=== PATIENT | male | born 1965 | race Caucasian/White ===

== ENCOUNTER 2016-11-08 11:15 | Emergency (ER) | payer OTHER ==
[2016-01-22 10:50] VITALS: BMI 22.6
[~2016-11-08 11:15] MED LIST: CELEXA20 MG PO; CYMBALTA60 MG PO; LITHIUM CARBON300 M3 PO; OLEPTRO ER150 MG PO; OXYCODONE HCL5 MG PO; SEROQUEL300 MG PO
[2016-11-08 12:08] LABS: BASOPHILS 0.2 % (0.0-2.0); EOSINOPHILS 3.7 % (0-7); HEMOGLOBIN 14.8 g/dL (13.5-17.5); IMMATURE GRANULOCYTES 0.2 % (0-5); LYMPHOCYTES 45.7 % (15-50); MCH 32.7 pg (26.0-34.0); MCHC 32.2 g/dL (31.0-37.0); MCV 101.5 fL (80.0-100.0); MEAN PLATELET VOLUME 12.3 fL (7.4-10.4); NEUTROPHILS 37.2 % (40-80); RBC 4.53 10x6/uL (4.20-6.10); RDW 13.9 % (11.5-14.5); WBC 4.9 10x3/uL (4.8-10.8)
[2016-11-08 12:10] LABS: ALBUMIN 4.4 g/dL (3.4-5.0); ALKALINE PHOSPHATASE 99 U/L (46-116); ALT (SGPT) 40 U/L (10-68); BILIRUBIN - TOTAL 0.25 mg/dL (0.2-1.3); CALC OSMOLALITY 278 mosm/kg (275-300); CALCIUM 9.3 mg/dL (8.5-10.1); CARBON DIOXIDE 32.4 mmol/L (21.0-32.0); CHLORIDE - SERUM 104 mmol/L (98-107); GLUCOSE 74 mg/dL (74-106); POTASSIUM - SERUM 3.8 mmol/L (3.5-5.1); PROTEIN - SERUM 7.8 g/dL (6.4-8.2); SODIUM 141 mmol/L (136-145); UREA NITROGEN 9 mg/dL (7-18); eGFR NON AFRICAN AMERICAN 85 mL/min (90-120)
[2016-11-08 12:11] LABS: PLATELET COUNT 124 10x3/uL (130-400)
[2016-11-08 12:26] LABS: CREATINE KINASE 110 UL (21-232)
[2016-11-08 12:28] LABS: TROPONIN-I < 0.017 ng/mL (0.000-0.060)
== END 2016-11-08 16:33 | disposition home or self-care (01) ==
LOC: D.ER 11:15
PROVIDERS: Emergency Medicine
DX: M54.9 Dorsalgia, unspecified (principal); F31.9 Bipolar disorder, unspecified; F17.200 Nicotine dependence, unspecified, uncomplicated

== ENCOUNTER 2016-11-09 12:30 | Emergency (ER) | payer OTHER ==
[2016-01-22 10:50] VITALS: BMI 22.6
[2016-11-09 13:07] LABS: APPEARANCE CLEAR (CLEAR); BILIRUBIN NEGATIVE (NEGATIVE); COLOR YELLOW (YELLOW); GLUCOSE NEGATIVE (NEGATIVE); KETONE NEGATIVE (NEGATIVE); LEUKOCYTE ESTERASE NEGATIVE (NEGATIVE); NITRITE NEGATIVE (NEGATIVE); PROTEIN NEGATIVE (NEGATIVE); UROBILINOGEN NORMAL (NORMAL)
[2016-11-09 13:11] LABS: UDS - AMPHET NEGATIVE QUAL (NEGATIVE); UDS - BARB NEGATIVE QUAL (NEGATIVE); UDS - BENZO NEGATIVE QUAL (NEGATIVE); UDS - COCAINE NEGATIVE QUAL (NEGATIVE); UDS - METH NEGATIVE QUAL (NEGATIVE); UDS - OPIATE POSITIVE QUAL (NEGATIVE); UDS - PCP NEGATIVE QUAL (NEGATIVE); UDS - THC NEGATIVE QUAL (NEGATIVE)
[2016-11-09 13:28] LABS: BASOPHILS 0.1 % (0.0-2.0); EOSINOPHILS 0.1 % (0-7); HEMATOCRIT 39.8 % (42.0-54.0); IMMATURE GRANULOCYTES 0.2 % (0-5); MCH 32.7 pg (26.0-34.0); MCHC 32.7 g/dL (31.0-37.0); MCV 100.3 fL (80.0-100.0); MEAN PLATELET VOLUME 12.1 fL (7.4-10.4); MONOCYTES 9.9 % (2-11); NEUTROPHILS 75.7 % (40-80); PLATELET COUNT 124 10x3/uL (130-400); RBC 3.97 10x6/uL (4.20-6.10); RDW 13.7 % (11.5-14.5); WBC 14.5 10x3/uL (4.8-10.8)
[2016-11-09 14:08] LABS: ALKALINE PHOSPHATASE 82 U/L (46-116); ALT (SGPT) 31 U/L (10-68); BILIRUBIN - TOTAL 0.17 mg/dL (0.2-1.3); CALCIUM 9.1 mg/dL (8.5-10.1); CARBON DIOXIDE 24.7 mmol/L (21.0-32.0); CHLORIDE - SERUM 105 mmol/L (98-107); CREATININE - SERUM 1.1 mg/dL (0.6-1.3); PROTEIN - SERUM 6.9 g/dL (6.4-8.2); SODIUM 140 mmol/L (136-145); UREA NITROGEN 11 mg/dL (7-18); eGFR NON AFRICAN AMERICAN 76 mL/min (90-120)
[2016-11-09 14:13] LABS: CALC OSMOLALITY 280 mosm/kg (275-300); GLUCOSE 153 mg/dL (74-106)
== END 2016-11-09 19:11 | disposition home or self-care (01) ==
LOC: D.ER 12:30
PROVIDERS: Emergency Medicine
DX: F23 Brief psychotic disorder (principal); Z91.14 Patient's other noncompliance with medication regimen; F31.9 Bipolar disorder, unspecified; F17.200 Nicotine dependence, unspecified, uncomplicated

== ENCOUNTER 2016-11-22 16:18 | Emergency (ER) | payer OTHER ==
[2016-01-22 10:50] VITALS: BMI 22.6
[2016-11-22 17:00] LABS: APPEARANCE CLEAR (CLEAR); COLOR YELLOW (YELLOW)
[2016-11-22 17:01] LABS: BILIRUBIN NEGATIVE (NEGATIVE); GLUCOSE NEGATIVE (NEGATIVE); KETONE NEGATIVE (NEGATIVE); LEUKOCYTE ESTERASE NEGATIVE (NEGATIVE); NITRITE NEGATIVE (NEGATIVE); PROTEIN NEGATIVE (NEGATIVE); SPECIFIC GRAVITY 1.005 (1.005-1.020); UROBILINOGEN NORMAL (NORMAL)
[2016-11-22 17:08] LABS: BASOPHILS 0.5 % (0.0-2.0); HEMATOCRIT 47.2 % (42.0-54.0); HEMOGLOBIN 15.5 g/dL (13.5-17.5); IMMATURE GRANULOCYTES 0.5 % (0-5); LYMPHOCYTES 26.1 % (15-50); MCH 32.3 pg (26.0-34.0); MCHC 32.8 g/dL (31.0-37.0); MCV 98.3 fL (80.0-100.0); MEAN PLATELET VOLUME 12.2 fL (7.4-10.4); MONOCYTES 8.3 % (2-11); NEUTROPHILS 59.6 % (40-80); RDW 13.8 % (11.5-14.5); WBC 6.6 10x3/uL (4.8-10.8)
[2016-11-22 17:09] LABS: PLATELET COUNT 65 10x3/uL (130-400)
[2016-11-22 17:36] LABS: PLATELET ESTIMATE DECREASED
[2016-11-22 18:24] LABS: ALBUMIN 4.4 g/dL (3.4-5.0); ALKALINE PHOSPHATASE 101 U/L (46-116); ALT (SGPT) 65 U/L (10-68); AMYLASE - SERUM 157 U/L (25-115); CALC OSMOLALITY 288 mosm/kg (275-300); CALCIUM 9.4 mg/dL (8.5-10.1); CARBON DIOXIDE 29.1 mmol/L (21.0-32.0); CHLORIDE - SERUM 106 mmol/L (98-107); LIPASE 516 U/L (73-393); POTASSIUM - SERUM 3.7 mmol/L (3.5-5.1); PROTEIN - SERUM 7.8 g/dL (6.4-8.2); SODIUM 146 mmol/L (136-145); UREA NITROGEN 8 mg/dL (7-18); eGFR NON AFRICAN AMERICAN 84 mL/min (90-120)
[2016-11-22 18:25] LABS: GLUCOSE 92 mg/dL (74-106)
== END 2016-11-22 19:35 | disposition home or self-care (01) ==
LOC: D.ER 16:18
PROVIDERS: Family Medicine
DX: R11.10 Vomiting, unspecified (principal); F31.9 Bipolar disorder, unspecified; F10.10 Alcohol abuse, uncomplicated; F17.200 Nicotine dependence, unspecified, uncomplicated

== ENCOUNTER 2016-12-04 11:26 | Emergency (ER) | payer OTHER ==
[2016-01-22 10:50] VITALS: BMI 22.6
== END 2016-12-04 13:57 | disposition home or self-care (01) ==
LOC: D.ER 11:26
DX: M54.5 Low back pain (principal); F31.9 Bipolar disorder, unspecified; F17.200 Nicotine dependence, unspecified, uncomplicated

== ENCOUNTER 2016-12-12 14:41 | Emergency (ER) | payer OTHER ==
[2016-01-22 10:50] VITALS: BMI 22.6
== END 2016-12-12 15:17 | disposition home or self-care (01) ==
LOC: D.ER 14:41
DX: M54.5 Low back pain (principal); Z76.0 Encounter for issue of repeat prescription; F31.9 Bipolar disorder, unspecified

== ENCOUNTER 2016-12-22 16:02 | Emergency (ER) | payer OTHER ==
[2016-01-22 10:50] VITALS: BMI 22.6
== END 2016-12-22 18:25 | disposition home or self-care (01) ==
LOC: D.ER 16:02
DX: M54.5 Low back pain (principal)

== ENCOUNTER 2016-12-29 16:31 | Emergency (ER) | payer OTHER ==
[2016-01-22 10:50] VITALS: BMI 22.6
== END 2016-12-29 20:30 | disposition home or self-care (01) ==
LOC: D.ER 16:31
DX: M54.5 Low back pain (principal); F17.200 Nicotine dependence, unspecified, uncomplicated; F31.9 Bipolar disorder, unspecified

== ENCOUNTER 2017-01-01 17:20 | Emergency (ER) | payer OTHER ==
[2016-01-22 10:50] VITALS: BMI 22.6
== END 2017-01-01 20:48 | disposition home or self-care (01) ==
LOC: D.ER 17:20
DX: M54.5 Low back pain (principal); M62.830 Muscle spasm of back; F31.9 Bipolar disorder, unspecified

== ENCOUNTER 2017-01-06 16:25 | Emergency (ER) | payer OTHER ==
[2016-01-22 10:50] VITALS: BMI 22.6
== END 2017-01-06 20:02 | disposition home or self-care (01) ==
LOC: D.ER 16:25
DX: M54.5 Low back pain (principal); F17.200 Nicotine dependence, unspecified, uncomplicated; F31.9 Bipolar disorder, unspecified

== ENCOUNTER 2017-01-20 18:16 | Emergency (ER) | payer OTHER ==
[2016-01-22 10:50] VITALS: BMI 22.6
[2017-01-20 20:13] LABS: HEMOGLOBIN 15.3 g/dL (13.5-17.5); MCH 32.6 pg (26.0-34.0); MCHC 33.3 g/dL (31.0-37.0); MCV 97.9 fL (80.0-100.0); MEAN PLATELET VOLUME 11.5 fL (7.4-10.4); WBC 5.2 10x3/uL (4.8-10.8)
[2017-01-20 20:14] LABS: PLATELET COUNT 167 10x3/uL (130-400)
[2017-01-20 20:23] LABS: ALBUMIN 4.4 g/dL (3.4-5.0); ALKALINE PHOSPHATASE 99 U/L (46-116); ALT (SGPT) 51 U/L (10-68); BILIRUBIN - TOTAL 0.19 mg/dL (0.2-1.3); CALC OSMOLALITY 287 mosm/kg (275-300); CALCIUM 9.1 mg/dL (8.5-10.1); CARBON DIOXIDE 23.4 mmol/L (21.0-32.0); CHLORIDE - SERUM 107 mmol/L (98-107); GLUCOSE 96 mg/dL (74-106); POTASSIUM - SERUM 4.2 mmol/L (3.5-5.1); PROTEIN - SERUM 8.4 g/dL (6.4-8.2); SODIUM 145 mmol/L (136-145); UREA NITROGEN 10 mg/dL (7-18); eGFR NON AFRICAN AMERICAN 84 mL/min (90-120)
[2017-01-20 20:40] LABS: EOSINOPHILS 2 % (0-7); LYMPHOCYTES 61 % (15-50); MONOCYTES 9 % (2-11); NEUTROPHILS 28 % (40-80); PLATELET ESTIMATE NORMAL
[2017-01-20 21:26] LABS: AMYLASE - SERUM 127 U/L (25-115); LIPASE 545 U/L (73-393)
== END 2017-01-21 00:40 | disposition home or self-care (01) ==
LOC: D.ER 18:16
PROVIDERS: Emergency Medicine; Physician Assistant
DX: R10.9 Unspecified abdominal pain (principal); R11.2 Nausea with vomiting, unspecified; M54.9 Dorsalgia, unspecified; K29.00 Acute gastritis without bleeding

== ENCOUNTER 2017-02-15 15:39 | Emergency (ER) | payer OTHER ==
[2016-01-22 10:50] VITALS: BMI 22.6
== END 2017-02-15 18:52 | disposition home or self-care (01) ==
LOC: D.ER 15:39
DX: S16.1XXA Strain of muscle, fascia and tendon at neck level, initial encounter (principal); X58.XXXA Exposure to other specified factors, initial encounter; Y93.89 Activity, other specified; Y92.89 Other specified places as the place of occurrence of the external cause; M62.838 Other muscle spasm; F17.200 Nicotine dependence, unspecified, uncomplicated

== ENCOUNTER 2017-02-19 17:55 | Emergency (ER) | payer OTHER ==
[2016-01-22 10:50] VITALS: BMI 22.6
[2017-02-19 18:23] LABS: BASOPHILS 0.1 % (0-2); EOSINOPHILS 3.1 % (0-7); HEMATOCRIT 47.6 % (42.0-54.0); HEMOGLOBIN 15.5 g/dL (13.5-17.5); IMMATURE GRANULOCYTES 0.1 % (0-5); MCH 32.4 pg (26.0-34.0); MCHC 32.6 g/dL (31.0-37.0); MCV 99.6 fL (80.0-100.0); MEAN PLATELET VOLUME 10.9 fL (7.4-10.4); MONOCYTES 17.2 % (2-11); NEUTROPHILS 48.5 % (40-80); PLATELET COUNT 192 10x3/uL (130-400); RBC 4.78 10x6/uL (4.20-6.10); WBC 6.9 10x3/uL (4.8-10.8)
[2017-02-19 18:25] LABS: APPEARANCE CLEAR (CLEAR); BILIRUBIN NEGATIVE (NEGATIVE); COLOR STRAW (YELLOW); GLUCOSE NEGATIVE (NEGATIVE); KETONE NEGATIVE (NEGATIVE); LEUKOCYTE ESTERASE NEGATIVE (NEGATIVE); NITRITE NEGATIVE (NEGATIVE); PROTEIN NEGATIVE (NEGATIVE); UROBILINOGEN NORMAL (NORMAL)
[2017-02-19 18:30] LABS: UDS - AMPHET NEGATIVE QUAL (NEGATIVE); UDS - BARB NEGATIVE QUAL (NEGATIVE); UDS - BENZO NEGATIVE QUAL (NEGATIVE); UDS - COCAINE NEGATIVE QUAL (NEGATIVE); UDS - METH NEGATIVE QUAL (NEGATIVE); UDS - OPIATE NEGATIVE QUAL (NEGATIVE); UDS - PCP NEGATIVE QUAL (NEGATIVE); UDS - THC NEGATIVE QUAL (NEGATIVE)
[2017-02-19 18:37] LABS: ALBUMIN 4.3 g/dL (3.4-5.0); ALKALINE PHOSPHATASE 109 U/L (46-116); ALT (SGPT) 33 U/L (10-68); CALC OSMOLALITY 275 mosm/kg (275-300); CALCIUM 9.5 mg/dL (8.5-10.1); CARBON DIOXIDE 27.5 mmol/L (21.0-32.0); CHLORIDE - SERUM 103 mmol/L (98-107); GLUCOSE 81 mg/dL (74-106); POTASSIUM - SERUM 4.2 mmol/L (3.5-5.1); PROTEIN - SERUM 8.3 g/dL (6.4-8.2); SODIUM 140 mmol/L (136-145); UREA NITROGEN 7 mg/dL (7-18); eGFR NON AFRICAN AMERICAN 84 mL/min (90-120)
== END 2017-02-20 00:04 | disposition home or self-care (01) ==
LOC: D.ER 17:55
PROVIDERS: Emergency Medicine
DX: F10.129 Alcohol abuse with intoxication, unspecified (principal); R45.851 Suicidal ideations; F17.200 Nicotine dependence, unspecified, uncomplicated

== ENCOUNTER 2017-07-23 09:54 | Emergency (ER) | payer OTHER ==
[2016-01-22 10:50] VITALS: BMI 22.6
[2017-07-23 10:17] LABS: BASOPHILS 0.1 % (0-2); EOSINOPHILS 1.4 % (0-7); HEMATOCRIT 43.8 % (42.0-54.0); HEMOGLOBIN 14.7 g/dL (13.5-17.5); IMMATURE GRANULOCYTES 0.3 % (0-5); LYMPHOCYTES 28.3 % (15-50); MCH 33.7 pg (26.0-34.0); MCHC 33.6 g/dL (31.0-37.0); MCV 100.5 fL (80.0-100.0); MEAN PLATELET VOLUME 11.5 fL (7.4-10.4); NEUTROPHILS 56.9 % (40-80); PLATELET COUNT 187 10x3/uL (130-400); RBC 4.36 10x6/uL (4.20-6.10); RDW 12.9 % (11.5-14.5); WBC 7.7 10x3/uL (4.8-10.8)
[2017-07-23 10:22] LABS: APPEARANCE CLEAR (CLEAR); BILIRUBIN NEGATIVE (NEGATIVE); COLOR STRAW (YELLOW); GLUCOSE NEGATIVE (NEGATIVE); KETONE NEGATIVE (NEGATIVE); NITRITE NEGATIVE (NEGATIVE); PH 5.5 (5.0-6.0); PROTEIN NEGATIVE (NEGATIVE); SPECIFIC GRAVITY 1.005 (1.005-1.020); UROBILINOGEN NORMAL (NORMAL)
[2017-07-23 10:31] LABS: ALBUMIN 4.1 g/dL (3.4-5.0); ALKALINE PHOSPHATASE 103 U/L (46-116); ALT (SGPT) 45 U/L (10-68); AMYLASE - SERUM 63 U/L (25-115); BILIRUBIN - TOTAL 0.34 mg/dL (0.2-1.3); CALC OSMOLALITY 278 mosm/kg (275-300); CALCIUM 9.5 mg/dL (8.5-10.1); CARBON DIOXIDE 23.6 mmol/L (21.0-32.0); CHLORIDE - SERUM 104 mmol/L (98-107); CREATININE - SERUM 0.8 mg/dL (0.6-1.3); GLUCOSE 117 mg/dL (74-106); LIPASE 119 U/L (73-393); SODIUM 140 mmol/L (136-145); UREA NITROGEN 10 mg/dL (7-18); eGFR NON AFRICAN AMERICAN > 90 mL/min (90-120)
== END 2017-07-23 11:38 | disposition home or self-care (01) ==
LOC: D.ER 09:54
PROVIDERS: Emergency Medicine
DX: K21.9 Gastro-esophageal reflux disease without esophagitis (principal); F17.200 Nicotine dependence, unspecified, uncomplicated

== ENCOUNTER 2017-08-21 09:18 | Emergency (ER) | payer OTHER ==
[2016-01-22 10:50] VITALS: BMI 22.6
[2017-08-21 09:48] LABS: BASOPHILS 0 % (0-2); HEMATOCRIT 41.8 % (42.0-54.0); HEMOGLOBIN 14.3 g/dL (13.5-17.5); IMMATURE GRANULOCYTES 0.4 % (0-5); LYMPHOCYTES 36.8 % (15-50); MCH 33.6 pg (26.0-34.0); MCHC 34.2 g/dL (31.0-37.0); MCV 98.1 fL (80.0-100.0); MEAN PLATELET VOLUME 11.4 fL (7.4-10.4); MONOCYTES 16.9 % (2-11); NEUTROPHILS 43.9 % (40-80); PLATELET COUNT 164 10x3/uL (130-400); RBC 4.26 10x6/uL (4.20-6.10); RDW 12.7 % (11.5-14.5); WBC 7.7 10x3/uL (4.8-10.8)
[2017-08-21 09:57] LABS: APTT 24.5 SECONDS (22.8-39.4); INR 0.96 (0.85-1.17); PROTIME 12.7 SECONDS (11.6-15.0)
[2017-08-21 10:03] LABS: ALBUMIN 4.2 g/dL (3.4-5.0); ALKALINE PHOSPHATASE 100 U/L (46-116); ALT (SGPT) 48 U/L (10-68); BILIRUBIN - TOTAL 0.55 mg/dL (0.2-1.3); CALC OSMOLALITY 277 mosm/kg (275-300); CALCIUM 8.8 mg/dL (8.5-10.1); CARBON DIOXIDE 23.7 mmol/L (21.0-32.0); CHLORIDE - SERUM 103 mmol/L (98-107); CREATININE - SERUM 0.9 mg/dL (0.6-1.3); GLUCOSE 98 mg/dL (74-106); POTASSIUM - SERUM 3.6 mmol/L (3.5-5.1); PROTEIN - SERUM 8.1 g/dL (6.4-8.2); SODIUM 139 mmol/L (136-145); UREA NITROGEN 12 mg/dL (7-18); eGFR NON AFRICAN AMERICAN > 90 mL/min (90-120)
[2017-08-21 10:24] LABS: APPEARANCE CLEAR (CLEAR); BILIRUBIN NEGATIVE (NEGATIVE); COLOR DK YELLOW (YELLOW); GLUCOSE NEGATIVE (NEGATIVE); KETONE NEGATIVE (NEGATIVE); NITRITE NEGATIVE (NEGATIVE); PROTEIN NEGATIVE (NEGATIVE); UROBILINOGEN NORMAL (NORMAL)
== END 2017-08-21 11:22 | disposition home or self-care (01) ==
LOC: D.ER 09:18
PROVIDERS: Emergency Medicine
DX: K62.5 Hemorrhage of anus and rectum (principal); F17.200 Nicotine dependence, unspecified, uncomplicated

== ENCOUNTER 2017-09-10 11:49 | Emergency (ER) | payer OTHER ==
[2016-01-22 10:50] VITALS: BMI 22.6
== END 2017-09-10 13:35 | disposition home or self-care (01) ==
LOC: D.ER 11:49
DX: S40.011A Contusion of right shoulder, initial encounter (principal); S20.211A Contusion of right front wall of thorax, initial encounter; W01.0XXA Fall on same level from slipping, tripping and stumbling without subsequent striking against object, initial encounter; Y93.89 Activity, other specified; Y92.89 Other specified places as the place of occurrence of the external cause; F17.200 Nicotine dependence, unspecified, uncomplicated; K21.9 Gastro-esophageal reflux disease without esophagitis

== ENCOUNTER 2017-09-21 14:26 | Emergency (ER) | payer OTHER ==
[2016-01-22 10:50] VITALS: BMI 22.6
== END 2017-09-21 17:30 | disposition home or self-care (01) ==
LOC: D.ER 14:26
DX: M54.16 Radiculopathy, lumbar region (principal); K21.9 Gastro-esophageal reflux disease without esophagitis; F17.200 Nicotine dependence, unspecified, uncomplicated

== ENCOUNTER 2017-09-22 09:27 | Emergency (ER) | payer OTHER ==
[2016-01-22 10:50] VITALS: BMI 22.6
== END 2017-09-22 14:20 | disposition home or self-care (01) ==
LOC: D.ER 09:27
DX: S01.111A Laceration without foreign body of right eyelid and periocular area, initial encounter (principal); W22.8XXA Striking against or struck by other objects, initial encounter; Y93.89 Activity, other specified; Y92.89 Other specified places as the place of occurrence of the external cause; R51 Headache; K21.9 Gastro-esophageal reflux disease without esophagitis

== ENCOUNTER 2017-09-25 19:48 | Emergency (ER) | payer OTHER ==
[2016-01-22 10:50] VITALS: BMI 22.6
[2017-09-25 20:24] LABS: BASOPHILS 0.2 % (0-2); EOSINOPHILS 0.8 % (0-7); HEMATOCRIT 49.1 % (42.0-54.0); HEMOGLOBIN 16.4 g/dL (13.5-17.5); IMMATURE GRANULOCYTES 0.2 % (0-5); LYMPHOCYTES 25.6 % (15-50); MCH 33.8 pg (26.0-34.0); MCHC 33.4 g/dL (31.0-37.0); MCV 101.2 fL (80.0-100.0); MEAN PLATELET VOLUME 11.1 fL (7.4-10.4); MONOCYTES 15.5 % (2-11); NEUTROPHILS 57.7 % (40-80); RBC 4.85 10x6/uL (4.20-6.10); WBC 9.6 10x3/uL (4.8-10.8)
[2017-09-25 20:25] LABS: APPEARANCE CLEAR (CLEAR); BILIRUBIN NEGATIVE (NEGATIVE); COLOR YELLOW (YELLOW); GLUCOSE NEGATIVE (NEGATIVE); KETONE NEGATIVE (NEGATIVE); NITRITE NEGATIVE (NEGATIVE); PLATELET COUNT 207 10x3/uL (130-400); PROTEIN NEGATIVE (NEGATIVE); SPECIFIC GRAVITY 1.005 (1.005-1.020); UROBILINOGEN NORMAL (NORMAL)
[2017-09-25 20:35] LABS: INR 0.94 (0.85-1.17); PROTIME 12.2 SECONDS (11.6-15.0)
[2017-09-25 20:41] LABS: ALBUMIN 4.4 g/dL (3.4-5.0); ALKALINE PHOSPHATASE 118 U/L (46-116); ALT (SGPT) 33 U/L (10-68); AMYLASE - SERUM 74 U/L (25-115); CALC OSMOLALITY 278 mosm/kg (275-300); CALCIUM 10.1 mg/dL (8.5-10.1); CARBON DIOXIDE 25.5 mmol/L (21.0-32.0); CHLORIDE - SERUM 103 mmol/L (98-107); CREATININE - SERUM 0.9 mg/dL (0.6-1.3); GLUCOSE 81 mg/dL (74-106); LIPASE 175 U/L (73-393); POTASSIUM - SERUM 3.9 mmol/L (3.5-5.1); PROTEIN - SERUM 8.4 g/dL (6.4-8.2); SODIUM 141 mmol/L (136-145); UREA NITROGEN 11 mg/dL (7-18); eGFR NON AFRICAN AMERICAN > 90 mL/min (90-120)
== END 2017-09-25 21:31 | disposition home or self-care (01) ==
LOC: D.ER 19:48
PROVIDERS: Family Medicine; Physician Assistant
DX: R10.11 Right upper quadrant pain (principal); Z72.89 Other problems related to lifestyle; Z87.19 Personal history of other diseases of the digestive system; F17.200 Nicotine dependence, unspecified, uncomplicated; K21.9 Gastro-esophageal reflux disease without esophagitis

== ENCOUNTER 2017-09-26 07:19 | Emergency (ER) | payer OTHER ==
[2016-01-22 10:50] VITALS: BMI 22.6
[2017-09-26 07:37] LABS: HEMATOCRIT 44.9 % (42.0-54.0); HEMOGLOBIN 15.2 g/dL (13.5-17.5); MCH 33.8 pg (26.0-34.0); MCHC 33.9 g/dL (31.0-37.0); MCV 99.8 fL (80.0-100.0); MEAN PLATELET VOLUME 10.9 fL (7.4-10.4); PLATELET COUNT 212 10x3/uL (130-400); RDW 13.7 % (11.5-14.5); WBC 8.3 10x3/uL (4.8-10.8)
[2017-09-26 08:08] LABS: LYMPHOCYTES 33 % (15-50); MONOCYTES 13 % (2-11); NEUTROPHILS 54 % (40-80); PLATELET ESTIMATE NORMAL
[2017-09-26 08:57] LABS: ALKALINE PHOSPHATASE 111 U/L (46-116); ALT (SGPT) 32 U/L (10-68); CALC OSMOLALITY 280 mosm/kg (275-300); CALCIUM 9.4 mg/dL (8.5-10.1); CARBON DIOXIDE 25.4 mmol/L (21.0-32.0); CHLORIDE - SERUM 105 mmol/L (98-107); CREATININE - SERUM 0.8 mg/dL (0.6-1.3); GLUCOSE 86 mg/dL (74-106); LIPASE 212 U/L (73-393); POTASSIUM - SERUM 4.1 mmol/L (3.5-5.1); SODIUM 140 mmol/L (136-145); eGFR NON AFRICAN AMERICAN > 90 mL/min (90-120)
[2017-09-26 08:58] LABS: UREA NITROGEN 22 mg/dL (7-18)
== END 2017-09-26 10:06 | disposition home or self-care (01) ==
LOC: D.ER 07:19
PROVIDERS: Emergency Medicine
DX: R10.9 Unspecified abdominal pain (principal); K21.9 Gastro-esophageal reflux disease without esophagitis; K76.9 Liver disease, unspecified; F17.200 Nicotine dependence, unspecified, uncomplicated

== ENCOUNTER 2017-09-29 09:19 | Emergency (ER) | payer OTHER ==
[2016-01-22 10:50] VITALS: BMI 22.6
[2017-09-29 10:13] LABS: BASOPHILS 0.2 % (0-2); EOSINOPHILS 1.7 % (0-7); HEMATOCRIT 47.4 % (42.0-54.0); HEMOGLOBIN 15.8 g/dL (13.5-17.5); IMMATURE GRANULOCYTES 0.2 % (0-5); LYMPHOCYTES 27.6 % (15-50); MCH 33.9 pg (26.0-34.0); MCHC 33.3 g/dL (31.0-37.0); MCV 101.7 fL (80.0-100.0); MEAN PLATELET VOLUME 11.7 fL (7.4-10.4); MONOCYTES 14.7 % (2-11); NEUTROPHILS 55.6 % (40-80); PLATELET COUNT 190 10x3/uL (130-400); RBC 4.66 10x6/uL (4.20-6.10); RDW 13.8 % (11.5-14.5)
[2017-09-29 11:32] LABS: ALBUMIN 4.1 g/dL (3.4-5.0); ALKALINE PHOSPHATASE 113 U/L (46-116); ALT (SGPT) 43 U/L (10-68); BILIRUBIN - TOTAL 0.25 mg/dL (0.2-1.3); CALC OSMOLALITY 282 mosm/kg (275-300); CALCIUM 9.4 mg/dL (8.5-10.1); CARBON DIOXIDE 26.5 mmol/L (21.0-32.0); CHLORIDE - SERUM 105 mmol/L (98-107); CREATININE - SERUM 0.8 mg/dL (0.6-1.3); GLUCOSE 81 mg/dL (74-106); LIPASE 130 U/L (73-393); POTASSIUM - SERUM 4.3 mmol/L (3.5-5.1); PROTEIN - SERUM 7.6 g/dL (6.4-8.2); SODIUM 142 mmol/L (136-145); UREA NITROGEN 16 mg/dL (7-18); eGFR NON AFRICAN AMERICAN > 90 mL/min (90-120)
[2017-09-29 12:37] LABS: APPEARANCE CLEAR (CLEAR); COLOR STRAW (YELLOW); SPECIFIC GRAVITY 1.005 (1.005-1.020)
[2017-09-29 12:38] LABS: BILIRUBIN NEGATIVE (NEGATIVE); GLUCOSE NEGATIVE (NEGATIVE); KETONE NEGATIVE (NEGATIVE); NITRITE NEGATIVE (NEGATIVE); PROTEIN NEGATIVE (NEGATIVE); UROBILINOGEN NORMAL (NORMAL)
== END 2017-09-29 15:07 | disposition home or self-care (01) ==
LOC: D.ER 09:19
PROVIDERS: Emergency Medicine; Physician Assistant
DX: R10.9 Unspecified abdominal pain (principal); K21.9 Gastro-esophageal reflux disease without esophagitis; K74.60 Unspecified cirrhosis of liver

== ENCOUNTER 2017-10-02 10:15 | Emergency (ER) | payer OTHER ==
[2016-01-22 10:50] VITALS: BMI 22.6
== END 2017-10-02 11:04 | disposition home or self-care (01) ==
LOC: D.ER 10:15
DX: R10.9 Unspecified abdominal pain (principal); F10.10 Alcohol abuse, uncomplicated; K21.9 Gastro-esophageal reflux disease without esophagitis; F17.200 Nicotine dependence, unspecified, uncomplicated

== ENCOUNTER 2017-10-06 09:51 | Emergency (ER) | payer OTHER ==
[2016-01-22 10:50] VITALS: BMI 22.6
== END 2017-10-06 10:48 | disposition home or self-care (01) ==
LOC: D.ER 09:51
DX: R10.9 Unspecified abdominal pain (principal); F17.200 Nicotine dependence, unspecified, uncomplicated

== ENCOUNTER 2017-10-07 10:20 | Emergency (ER) | payer OTHER ==
[2016-01-22 10:50] VITALS: BMI 22.6
[2017-10-07 10:47] LABS: BASOPHILS 0.3 % (0-2); EOSINOPHILS 1.7 % (0-7); HEMATOCRIT 43.1 % (42.0-54.0); HEMOGLOBIN 14.5 g/dL (13.5-17.5); IMMATURE GRANULOCYTES 0.1 % (0-5); LYMPHOCYTES 35.6 % (15-50); MCH 33.8 pg (26.0-34.0); MCHC 33.6 g/dL (31.0-37.0); MCV 100.5 fL (80.0-100.0); MEAN PLATELET VOLUME 11.3 fL (7.4-10.4); MONOCYTES 15.5 % (2-11); NEUTROPHILS 46.8 % (40-80); PLATELET COUNT 182 10x3/uL (130-400); RBC 4.29 10x6/uL (4.20-6.10); RDW 13.6 % (11.5-14.5); WBC 6.9 10x3/uL (4.8-10.8)
[2017-10-07 10:53] LABS: APPEARANCE CLEAR (CLEAR); BILIRUBIN NEGATIVE (NEGATIVE); COLOR YELLOW (YELLOW); GLUCOSE NEGATIVE (NEGATIVE); KETONE NEGATIVE (NEGATIVE); NITRITE NEGATIVE (NEGATIVE); PROTEIN NEGATIVE (NEGATIVE); UROBILINOGEN NORMAL (NORMAL)
[2017-10-07 11:00] LABS: ALBUMIN 4.1 g/dL (3.4-5.0); ALKALINE PHOSPHATASE 98 U/L (46-116); ALT (SGPT) 29 U/L (10-68); BILIRUBIN - TOTAL 0.25 mg/dL (0.2-1.3); CALC OSMOLALITY 278 mosm/kg (275-300); CALCIUM 9.2 mg/dL (8.5-10.1); CARBON DIOXIDE 25.4 mmol/L (21.0-32.0); CHLORIDE - SERUM 104 mmol/L (98-107); CREATININE - SERUM 0.9 mg/dL (0.6-1.3); GLUCOSE 110 mg/dL (74-106); PROTEIN - SERUM 7.5 g/dL (6.4-8.2); SODIUM 139 mmol/L (136-145); UREA NITROGEN 13 mg/dL (7-18); eGFR NON AFRICAN AMERICAN > 90 mL/min (90-120)
[2017-10-07 11:08] LABS: UDS - AMPHET NEGATIVE QUAL (NEGATIVE); UDS - BARB NEGATIVE QUAL (NEGATIVE); UDS - BENZO NEGATIVE QUAL (NEGATIVE); UDS - COCAINE NEGATIVE QUAL (NEGATIVE); UDS - OPIATE NEGATIVE QUAL (NEGATIVE); UDS - PCP NEGATIVE QUAL (NEGATIVE); UDS - THC NEGATIVE QUAL (NEGATIVE)
== END 2017-10-07 11:50 | disposition home or self-care (01) ==
LOC: D.ER 10:20
PROVIDERS: Emergency Medicine
DX: F29 Unspecified psychosis not due to a substance or known physiological condition (principal); F17.200 Nicotine dependence, unspecified, uncomplicated

== ENCOUNTER 2017-12-16 11:56 | Emergency (ER) | payer OTHER ==
[2016-01-22 10:50] VITALS: BMI 22.6
== END 2017-12-16 13:58 | disposition home or self-care (01) ==
LOC: D.ER 11:56
DX: R07.89 Other chest pain (principal); J20.9 Acute bronchitis, unspecified; F17.200 Nicotine dependence, unspecified, uncomplicated

== ENCOUNTER 2018-01-16 12:33 | Emergency (ER) | payer OTHER ==
[2016-01-22 10:50] VITALS: BMI 22.6
== END 2018-01-16 13:17 | disposition home or self-care (01) ==
LOC: D.ER 12:33
DX: J01.90 Acute sinusitis, unspecified (principal); F17.200 Nicotine dependence, unspecified, uncomplicated

== ENCOUNTER 2018-01-22 22:42 | Emergency (ER) | payer OTHER ==
[2016-01-22 10:50] VITALS: BMI 22.6
[2018-01-22 23:15] LABS: BASOPHILS 0.4 % (0-2); EOSINOPHILS 3.3 % (0-7); HEMATOCRIT 39.7 % (42.0-54.0); HEMOGLOBIN 13.2 g/dL (13.5-17.5); IMMATURE GRANULOCYTES 0.1 % (0-5); LYMPHOCYTES 44.3 % (15-50); MCH 33.2 pg (26.0-34.0); MCHC 33.2 g/dL (31.0-37.0); MEAN PLATELET VOLUME 10.5 fL (7.4-10.4); MONOCYTES 13.9 % (2-11); PLATELET COUNT 202 10x3/uL (130-400); RBC 3.97 10x6/uL (4.20-6.10); RDW 14.5 % (11.5-14.5); WBC 6.9 10x3/uL (4.8-10.8)
[2018-01-22 23:21] LABS: APPEARANCE CLEAR (CLEAR); BILIRUBIN NEGATIVE (NEGATIVE); COLOR YELLOW (YELLOW); GLUCOSE NEGATIVE (NEGATIVE); KETONE NEGATIVE (NEGATIVE); NITRITE NEGATIVE (NEGATIVE); PROTEIN NEGATIVE (NEGATIVE); UROBILINOGEN NORMAL (NORMAL)
[2018-01-22 23:28] LABS: ALBUMIN 3.9 g/dL (3.4-5.0); ALKALINE PHOSPHATASE 100 U/L (46-116); ALT (SGPT) 46 U/L (10-68); CALC OSMOLALITY 282 mosm/kg (275-300); CALCIUM 8.8 mg/dL (8.5-10.1); CARBON DIOXIDE 24.3 mmol/L (21.0-32.0); CHLORIDE - SERUM 109 mmol/L (98-107); CREATININE - SERUM 0.9 mg/dL (0.6-1.3); GLUCOSE 89 mg/dL (74-106); POTASSIUM - SERUM 3.6 mmol/L (3.5-5.1); PROTEIN - SERUM 7.7 g/dL (6.4-8.2); SODIUM 143 mmol/L (136-145); UREA NITROGEN 10 mg/dL (7-18); eGFR NON AFRICAN AMERICAN > 90 mL/min (90-120)
[2018-01-22 23:39] LABS: UDS - AMPHET NEGATIVE QUAL (NEGATIVE); UDS - BARB NEGATIVE QUAL (NEGATIVE); UDS - BENZO NEGATIVE QUAL (NEGATIVE); UDS - COCAINE NEGATIVE QUAL (NEGATIVE); UDS - OPIATE NEGATIVE QUAL (NEGATIVE); UDS - PCP NEGATIVE QUAL (NEGATIVE); UDS - THC NEGATIVE QUAL (NEGATIVE)
== END 2018-01-23 00:50 | disposition home or self-care (01) ==
LOC: D.ER 22:42
PROVIDERS: Family Medicine
DX: R51 Headache (principal); F10.10 Alcohol abuse, uncomplicated; F10.129 Alcohol abuse with intoxication, unspecified; F17.200 Nicotine dependence, unspecified, uncomplicated

== ENCOUNTER 2018-02-20 19:32 | Emergency (ER) | payer OTHER ==
[2016-01-22 10:50] VITALS: BMI 22.6
[2018-02-20 20:18] LABS: BASOPHILS 0.4 % (0-2); EOSINOPHILS 2.7 % (0-7); HEMATOCRIT 40.8 % (42.0-54.0); HEMOGLOBIN 13.7 g/dL (13.5-17.5); IMMATURE GRANULOCYTES 0.2 % (0-5); LYMPHOCYTES 39.8 % (15-50); MCH 33.2 pg (26.0-34.0); MCHC 33.6 g/dL (31.0-37.0); MCV 98.8 fL (80.0-100.0); MEAN PLATELET VOLUME 10.6 fL (7.4-10.4); MONOCYTES 14.7 % (2-11); NEUTROPHILS 42.2 % (40-80); PLATELET COUNT 176 10x3/uL (130-400); RBC 4.13 10x6/uL (4.20-6.10); RDW 13.5 % (11.5-14.5); WBC 5.2 10x3/uL (4.8-10.8)
[2018-02-20 20:38] LABS: ALBUMIN 3.7 g/dL (3.4-5.0); ALKALINE PHOSPHATASE 98 U/L (46-116); ALT (SGPT) 31 U/L (10-68); BILIRUBIN - TOTAL 0.14 mg/dL (0.2-1.3); CALC OSMOLALITY 278 mosm/kg (275-300); CALCIUM 8.5 mg/dL (8.5-10.1); CARBON DIOXIDE 22.5 mmol/L (21.0-32.0); CHLORIDE - SERUM 106 mmol/L (98-107); CREATININE - SERUM 0.9 mg/dL (0.6-1.3); GLUCOSE 89 mg/dL (74-106); POTASSIUM - SERUM 3.7 mmol/L (3.5-5.1); PROTEIN - SERUM 7.3 g/dL (6.4-8.2); SODIUM 141 mmol/L (136-145); UREA NITROGEN 10 mg/dL (7-18); eGFR NON AFRICAN AMERICAN > 90 mL/min (90-120)
[2018-02-20 20:47] LABS: APPEARANCE CLEAR (CLEAR); BILIRUBIN NEGATIVE (NEGATIVE); COLOR YELLOW (YELLOW); GLUCOSE NEGATIVE (NEGATIVE); KETONE NEGATIVE (NEGATIVE); NITRITE NEGATIVE (NEGATIVE); PROTEIN NEGATIVE (NEGATIVE); SPECIFIC GRAVITY 1.015 (1.005-1.020); UROBILINOGEN NORMAL (NORMAL)
[2018-02-20 20:58] LABS: UDS - AMPHET NEGATIVE QUAL (NEGATIVE); UDS - BARB NEGATIVE QUAL (NEGATIVE); UDS - BENZO POSITIVE QUAL (NEGATIVE); UDS - COCAINE NEGATIVE QUAL (NEGATIVE); UDS - OPIATE NEGATIVE QUAL (NEGATIVE); UDS - PCP NEGATIVE QUAL (NEGATIVE); UDS - THC POSITIVE QUAL (NEGATIVE)
== END 2018-02-21 04:33 | disposition short-term general hospital (02) ==
LOC: D.ER 19:32
PROVIDERS: Family Medicine
DX: R45.851 Suicidal ideations (principal); F10.10 Alcohol abuse, uncomplicated; F17.200 Nicotine dependence, unspecified, uncomplicated

== ENCOUNTER 2018-03-06 15:17 | Emergency (ER) | payer OTHER ==
[2016-01-22 10:50] VITALS: BMI 22.6
== END 2018-03-06 17:25 | disposition home or self-care (01) ==
LOC: D.ER 15:17
DX: S39.012A Strain of muscle, fascia and tendon of lower back, initial encounter (principal); X58.XXXA Exposure to other specified factors, initial encounter; Y93.89 Activity, other specified; Y92.019 Unspecified place in single-family (private) house as the place of occurrence of the external cause; M62.838 Other muscle spasm; F17.200 Nicotine dependence, unspecified, uncomplicated

== ENCOUNTER 2018-03-08 06:54 | Emergency (ER) | payer OTHER ==
[2016-01-22 10:50] VITALS: BMI 22.6
== END 2018-03-08 07:45 | disposition home or self-care (01) ==
LOC: D.ER 06:54
DX: M62.830 Muscle spasm of back (principal); M54.5 Low back pain; S39.012A Strain of muscle, fascia and tendon of lower back, initial encounter; X58.XXXA Exposure to other specified factors, initial encounter; Y93.01 Activity, walking, marching and hiking; Y92.410 Unspecified street and highway as the place of occurrence of the external cause

== ENCOUNTER 2018-05-05 10:00 | Emergency (ER) | payer OTHER ==
[~2018-05-05] VITALS: Ht 167.6 cm; Wt 62.7 kg
[2018-05-05 10:03] VITALS: Ht 167.6 cm; Wt 62.7 kg
[2018-05-05] MEDS ORDERED: VOLTAREN75 MG PO (15:59)
[2018-05-05] MEDS ORDERED: ROBAXIN-750750 MG PO (15:59)
[2018-05-05 16:44] VITALS: BP 143/79
== END 2018-05-05 16:45 | disposition home or self-care (01) ==
LOC: D.ER 10:00
DX: M54.5 Low back pain (principal); M62.830 Muscle spasm of back; F17.200 Nicotine dependence, unspecified, uncomplicated

== ENCOUNTER 2018-05-31 19:43 | Emergency (ER) | payer OTHER ==
[~2018-05-31] VITALS: Ht 167.6 cm; Wt 62.7 kg
[~2018-05-31 19:43] MED LIST changes: +ROBAXIN-750750 MG PO; +VOLTAREN75 MG PO
[2018-05-31 19:46] VITALS: Ht 167.6 cm; Wt 62.7 kg
[2018-05-31] MEDS ORDERED: ROBAXIN-750750 MG PO (20:48)
[2018-05-31] MEDS ORDERED: VOLTAREN75 MG PO (20:48)
[2018-05-31 21:09] VITALS: BP 132/85
== END 2018-05-31 21:10 | disposition home or self-care (01) ==
LOC: D.ER 19:43
DX: M54.5 Low back pain (principal); F17.200 Nicotine dependence, unspecified, uncomplicated

== ENCOUNTER 2018-06-05 18:29 | Emergency (ER) | payer OTHER ==
[~2018-06-05] VITALS: Ht 167.6 cm; Wt 72.8 kg
[2018-06-05 18:41] VITALS: Ht 167.6 cm; Wt 72.8 kg
[2018-06-05 20:29] LABS: BASOPHILS 0.4 % (0-2); EOSINOPHILS 6.1 % (0-7); HEMATOCRIT 40.8 % (42.0-54.0); IMMATURE GRANULOCYTES 0.2 % (0-5); LYMPHOCYTES 49.2 % (15-50); MCH 32.6 pg (26.0-34.0); MCHC 34.3 g/dL (31.0-37.0); MCV 94.9 fL (80.0-100.0); MEAN PLATELET VOLUME 11.5 fL (7.4-10.4); MONOCYTES 12.6 % (2-11); NEUTROPHILS 31.5 % (40-80); PLATELET COUNT 158 10x3/uL (130-400); RDW 14.3 % (11.5-14.5); WBC 5.1 10x3/uL (4.8-10.8)
[2018-06-05 20:37] LABS: ALBUMIN 3.6 g/dL (3.4-5.0); ALKALINE PHOSPHATASE 90 U/L (46-116); ALT (SGPT) 52 U/L (10-68); BILIRUBIN - TOTAL 0.23 mg/dL (0.2-1.3); CALC OSMOLALITY 279 mosm/kg (275-300); CALCIUM 8.3 mg/dL (8.5-10.1); CARBON DIOXIDE 25.6 mmol/L (21.0-32.0); CHLORIDE - SERUM 108 mmol/L (98-107); CREATININE - SERUM 0.8 mg/dL (0.6-1.3); GLUCOSE 81 mg/dL (74-106); POTASSIUM - SERUM 3.9 mmol/L (3.5-5.1); PROTEIN - SERUM 6.9 g/dL (6.4-8.2); SODIUM 142 mmol/L (136-145); UREA NITROGEN 7 mg/dL (7-18); eGFR NON AFRICAN AMERICAN > 90 mL/min (90-120)
[2018-06-05 21:50] LABS: AMYLASE - SERUM 82 U/L (25-115); CKMB 1.2 U/L (0.0-3.6); CREATINE KINASE 145 UL (21-232); LIPASE 219 U/L (73-393); TROPONIN-I < 0.017 ng/mL (0.000-0.060)
[2018-06-05] MEDS ORDERED: PROTONIX40 MG PO (23:00)
[2018-06-05 23:10] VITALS: BP 130/84
== END 2018-06-05 23:11 | disposition home or self-care (01) ==
LOC: D.ER 18:29
PROVIDERS: Family Medicine
DX: K29.70 Gastritis, unspecified, without bleeding (principal); F10.10 Alcohol abuse, uncomplicated; F17.200 Nicotine dependence, unspecified, uncomplicated

== ENCOUNTER 2018-07-01 22:44 | Emergency (ER) | payer OTHER ==
[~2018-07-01] VITALS: Ht 167.6 cm; Wt 62.7 kg
[~2018-07-01 22:44] MED LIST changes: +PROTONIX40 MG PO
[2018-07-01 22:58] VITALS: Ht 167.6 cm; Wt 62.7 kg
[2018-07-02] MEDS ORDERED: COMPAZINE5 MG PO (00:32)
[2018-07-02] MEDS ORDERED: NAPROSYN500 MG PO (00:32)
[2018-07-02 01:50] VITALS: BP 144/93
== END 2018-07-02 01:51 | disposition home or self-care (01) ==
LOC: D.ER 22:44
DX: G43.909 Migraine, unspecified, not intractable, without status migrainosus (principal); F17.200 Nicotine dependence, unspecified, uncomplicated; Z86.59 Personal history of other mental and behavioral disorders

== ENCOUNTER 2018-10-26 09:50 | Emergency (ER) | payer OTHER ==
[~2018-10-26] VITALS: Ht 167.6 cm; Wt 65.9 kg
[~2018-10-26 09:50] MED LIST changes: +COMPAZINE5 MG PO; +NAPROSYN500 MG PO
[2018-10-26 09:54] VITALS: Ht 167.6 cm; Wt 65.9 kg
[2018-10-26] MEDS ORDERED: ULTRAM50 MG PO (10:53)
[2018-10-26 10:58] LABS: BASOPHILS 0.3 % (0-2); EOSINOPHILS 2.7 % (0-7); HEMATOCRIT 45.2 % (42.0-54.0); HEMOGLOBIN 15.5 g/dL (13.5-17.5); IMMATURE GRANULOCYTES 0.4 % (0-5); LYMPHOCYTES 35.3 % (15-50); MCH 32.8 pg (26.0-34.0); MCHC 34.3 g/dL (31.0-37.0); MCV 95.6 fL (80.0-100.0); MEAN PLATELET VOLUME 11.2 fL (7.4-10.4); MONOCYTES 11.7 % (2-11); NEUTROPHILS 49.6 % (40-80); RBC 4.73 10x6/uL (4.20-6.10); RDW 13.3 % (11.5-14.5); WBC 7.5 10x3/uL (4.8-10.8)
[2018-10-26 11:03] LABS: PLATELET COUNT 218 10x3/uL (130-400)
[2018-10-26 11:08] LABS: ALBUMIN 4.1 g/dL (3.4-5.0); ALKALINE PHOSPHATASE 105 U/L (46-116); ALT (SGPT) 37 U/L (10-68); AMYLASE - SERUM 152 U/L (25-115); BILIRUBIN - TOTAL 0.38 mg/dL (0.2-1.3); CALC OSMOLALITY 278 mosm/kg (275-300); CALCIUM 9.6 mg/dL (8.5-10.1); CARBON DIOXIDE 24.4 mmol/L (21.0-32.0); CHLORIDE - SERUM 103 mmol/L (98-107); CREATININE - SERUM 0.8 mg/dL (0.6-1.3); GLUCOSE 94 mg/dL (74-106); LIPASE 395 U/L (73-393); POTASSIUM - SERUM 4.4 mmol/L (3.5-5.1); PROTEIN - SERUM 8.2 g/dL (6.4-8.2); SODIUM 140 mmol/L (136-145); UREA NITROGEN 12 mg/dL (7-18); eGFR NON AFRICAN AMERICAN > 90 mL/min (90-120)
[2018-10-26 15:43] VITALS: BP 127/83
== END 2018-10-26 15:40 | disposition home or self-care (01) ==
LOC: D.ER 09:50
PROVIDERS: Emergency Medicine
DX: K40.90 Unilateral inguinal hernia, without obstruction or gangrene, not specified as recurrent (principal); R10.9 Unspecified abdominal pain; F17.200 Nicotine dependence, unspecified, uncomplicated

== ENCOUNTER 2018-11-13 09:49 | Emergency (ER) | payer OTHER ==
[2018-10-26 09:54] VITALS: Ht 167.6 cm; Wt 70.5 kg
[~2018-11-13] VITALS: Ht 167.6 cm; Wt 70.5 kg
[~2018-11-13 09:49] MED LIST changes: +ULTRAM50 MG PO
[2018-11-13 10:27] LABS: BASOPHILS 0.2 % (0-2); EOSINOPHILS 4.4 % (0-7); HEMATOCRIT 43.2 % (42.0-54.0); HEMOGLOBIN 14.8 g/dL (13.5-17.5); IMMATURE GRANULOCYTES 0.2 % (0-5); LYMPHOCYTES 41.8 % (15-50); MCH 32.6 pg (26.0-34.0); MCHC 34.3 g/dL (31.0-37.0); MCV 95.2 fL (80.0-100.0); MONOCYTES 14.5 % (2-11); NEUTROPHILS 38.9 % (40-80); PLATELET COUNT 191 10x3/uL (130-400); RBC 4.54 10x6/uL (4.20-6.10); RDW 13.8 % (11.5-14.5); WBC 6.1 10x3/uL (4.8-10.8)
[2018-11-13 10:29] LABS: ALBUMIN 3.9 g/dL (3.4-5.0); ALKALINE PHOSPHATASE 109 U/L (46-116); ALT (SGPT) 42 U/L (10-68); BILIRUBIN - TOTAL 0.33 mg/dL (0.2-1.3); CALC OSMOLALITY 274 mosm/kg (275-300); CALCIUM 8.9 mg/dL (8.5-10.1); CARBON DIOXIDE 22.3 mmol/L (21.0-32.0); CHLORIDE - SERUM 103 mmol/L (98-107); CREATININE - SERUM 0.9 mg/dL (0.6-1.3); GLUCOSE 107 mg/dL (74-106); POTASSIUM - SERUM 3.5 mmol/L (3.5-5.1); PROTEIN - SERUM 7.8 g/dL (6.4-8.2); SODIUM 138 mmol/L (136-145); UREA NITROGEN 10 mg/dL (7-18); eGFR NON AFRICAN AMERICAN > 90 mL/min (90-120)
[2018-11-13] MEDS ORDERED: CIPRO500 MG PO (13:42)
[2018-11-13] MEDS ORDERED: FLAGYL500 MG PO (13:42)
[2018-11-13 14:15] VITALS: BP 124/86
== END 2018-11-13 14:06 | disposition home or self-care (01) ==
LOC: D.ER 09:49
PROVIDERS: Family Medicine
DX: K52.9 Noninfective gastroenteritis and colitis, unspecified (principal)

== ENCOUNTER 2019-03-25 18:28 | Emergency (ER) | payer MEDICAID ==
[~2019-03-25] VITALS: Ht 167.6 cm; Wt 68.2 kg
[~2019-03-25 18:28] MED LIST changes: +CIPRO500 MG PO; +FLAGYL500 MG PO
[2019-03-25 19:06] VITALS: Ht 167.6 cm; Wt 68.2 kg
[2019-03-25 19:47] LABS: BASOPHILS 0.3 % (0-2); EOSINOPHILS 1.1 % (0-7); HEMATOCRIT 44.4 % (42.0-54.0); HEMOGLOBIN 15.4 g/dL (13.5-17.5); IMMATURE GRANULOCYTES 0.3 % (0-5); LYMPHOCYTES 25.1 % (15-50); MCHC 34.7 g/dL (31.0-37.0); MCV 95.3 fL (80.0-100.0); MEAN PLATELET VOLUME 11.3 fL (7.4-10.4); MONOCYTES 13.7 % (2-11); NEUTROPHILS 59.5 % (40-80); PLATELET COUNT 193 10x3/uL (130-400); RBC 4.66 10x6/uL (4.20-6.10); RDW 13.3 % (11.5-14.5); WBC 7.9 10x3/uL (4.8-10.8)
[2019-03-25 20:07] LABS: ALBUMIN 4.3 g/dL (3.4-5.0); ALKALINE PHOSPHATASE 116 U/L (46-116); ALT (SGPT) 52 U/L (10-68); BILIRUBIN - TOTAL 0.41 mg/dL (0.2-1.3); CALC OSMOLALITY 283 mosm/kg (275-300); CALCIUM 9.4 mg/dL (8.5-10.1); CARBON DIOXIDE 24.5 mmol/L (21.0-32.0); CHLORIDE - SERUM 105 mmol/L (98-107); CREATININE - SERUM 0.9 mg/dL (0.6-1.3); GLUCOSE 99 mg/dL (74-106); POTASSIUM - SERUM 4.1 mmol/L (3.5-5.1); PROTEIN - SERUM 8.4 g/dL (6.4-8.2); SODIUM 142 mmol/L (136-145); UREA NITROGEN 15 mg/dL (7-18); eGFR NON AFRICAN AMERICAN > 90 mL/min (90-120)
[2019-03-25 20:09] LABS: AMYLASE - SERUM 49 U/L (25-115); LIPASE 97 U/L (73-393)
[2019-03-25 20:11] LABS: TROPONIN-I < 0.017 ng/mL (0.000-0.060)
[2019-03-25 20:17] LABS: APPEARANCE CLEAR (CLEAR); BILIRUBIN NEGATIVE (NEGATIVE); COLOR YELLOW (YELLOW); GLUCOSE NEGATIVE (NEGATIVE); KETONE NEGATIVE (NEGATIVE); NITRITE NEGATIVE (NEGATIVE); PROTEIN NEGATIVE (NEGATIVE); UROBILINOGEN NORMAL (NORMAL)
[2019-03-25 21:43] LABS: UDS - AMPHET NEGATIVE QUAL (NEGATIVE); UDS - BARB NEGATIVE QUAL (NEGATIVE); UDS - BENZO POSITIVE QUAL (NEGATIVE); UDS - COCAINE NEGATIVE QUAL (NEGATIVE); UDS - OPIATE POSITIVE QUAL (NEGATIVE); UDS - PCP NEGATIVE QUAL (NEGATIVE); UDS - THC POSITIVE QUAL (NEGATIVE)
[2019-03-25 23:05] VITALS: BP 130/85
== END 2019-03-25 23:05 | disposition home or self-care (01) ==
LOC: D.ER 18:28
PROVIDERS: Family Medicine
DX: R10.9 Unspecified abdominal pain (principal); R11.2 Nausea with vomiting, unspecified

== ENCOUNTER 2019-05-31 19:29 | Inpatient (IN) | payer MEDICAID ==
[~2019-05-31] VITALS: Ht 167.6 cm; Wt 53.6 kg
[2019-05-31] VITALS (7 sets, daily range): BP systolic 96–107; BP diastolic 67–71
[2019-05-31 20:14] LABS: BASOPHILS 0.2 % (0-2); EOSINOPHILS 6.1 % (0-7); HEMATOCRIT 41.1 % (42.0-54.0); HEMOGLOBIN 14.1 g/dL (13.5-17.5); IMMATURE GRANULOCYTES 0.2 % (0-5); LYMPHOCYTES 39.2 % (15-50); MCH 33.1 pg (26.0-34.0); MCHC 34.3 g/dL (31.0-37.0); MCV 96.5 fL (80.0-100.0); MEAN PLATELET VOLUME 10.5 fL (7.4-10.4); MONOCYTES 17.4 % (2-11); NEUTROPHILS 36.9 % (40-80); RBC 4.26 10x6/uL (4.20-6.10); RDW 13.8 % (11.5-14.5); WBC 5.9 10x3/uL (4.8-10.8)
[2019-05-31 20:16] LABS: ALBUMIN 3.5 g/dL (3.4-5.0); ALKALINE PHOSPHATASE 105 U/L (46-116); ALT (SGPT) 45 U/L (10-68); BILIRUBIN - TOTAL 0.34 mg/dL (0.2-1.3); CALC OSMOLALITY 281 mosm/kg (275-300); CALCIUM 8.6 mg/dL (8.5-10.1); CARBON DIOXIDE 23.6 mmol/L (21.0-32.0); CHLORIDE - SERUM 107 mmol/L (98-107); CREATININE - SERUM 0.8 mg/dL (0.6-1.3); GLUCOSE 82 mg/dL (74-106); PROTEIN - SERUM 7.5 g/dL (6.4-8.2); SODIUM 143 mmol/L (136-145); UREA NITROGEN 8 mg/dL (7-18); eGFR NON AFRICAN AMERICAN > 90 mL/min (90-120)
[2019-05-31 20:17] LABS: PLATELET COUNT 130 10x3/uL (130-400)
[2019-05-31 20:19] LABS: APPEARANCE CLEAR (CLEAR); BILIRUBIN NEGATIVE (NEGATIVE); COLOR YELLOW (YELLOW); GLUCOSE NEGATIVE (NEGATIVE); KETONE NEGATIVE (NEGATIVE); NITRITE NEGATIVE (NEGATIVE); PROTEIN TRACE mg/dL (NEGATIVE); UROBILINOGEN NORMAL (NORMAL)
[2019-05-31 20:29] LABS: UDS - AMPHET NEGATIVE QUAL (NEGATIVE); UDS - BARB NEGATIVE QUAL (NEGATIVE); UDS - BENZO POSITIVE QUAL (NEGATIVE); UDS - COCAINE NEGATIVE QUAL (NEGATIVE); UDS - OPIATE NEGATIVE QUAL (NEGATIVE); UDS - PCP NEGATIVE QUAL (NEGATIVE); UDS - THC NEGATIVE QUAL (NEGATIVE)
--- NOTE | 2019-05-31 20:50 | NUR ---
NS INFUSION COMPLETE
--- NOTE | 2019-05-31 22:47 | NUR ---
DR VALERO NOTIFIED AND REVIEWED PT BEHAVIOR AND ASSESSMENT RESULTS, PT IS A LOW RISK PER DR BARAJAS. DR BARAJAS STATES TO GIVE RESOURCES TO PT AT TIME OF DISCHARGE. NO FURTHER ORDERS AT THIS TIME. RESOURCES REVIEWED WITH PT AND HE VERBALIZED UNDERSTANDING.
--- NOTE | 2019-05-31 22:49 | NUR ---
PSYCH SCREENER AT BEDSIDE. PT GIVEN COFFEE TO DRINK AT THIS TIME.
--- NOTE | 2019-05-31 22:55 | NUR ---
PSCYH SCREENER STATES THAT PT IS LOW RISK. ICU INFORMED.
[2019-05-31] MEDS ORDERED: LIBRIUM25 MG PO (22:56)
[2019-05-31] MEDS ORDERED: OMEPRAZOLE40 MG PO (22:56)
--- NOTE | 2019-05-31 23:20 | NUR ---
RECEIVED TO ROOM VIA STRECHER FROM ER. ALERT,ORIENTED. NO COMPLAIINTS AT PRESENT. RESP EVEN AND UNLABORED. NO DISTRESS NOTED. O2 @ 98% RA. IV TO LFA INTACT WIHTOUT REDNESS OR EDEMA NOTED. ORIENTED TO ROOM. CL IN REACH
[2019-06-01] VITALS (24 sets, daily range): BP systolic 98–150; BP diastolic 61–91; Ht 167.6 cm; Wt 53.6 kg
--- NOTE | 2019-06-01 00:05 | NUR ---
PATIENT WAS ASSESSED PER BEHAVIORAL HEALTH IN ER.
--- NOTE | 2019-06-01 01:41 | NUR ---
BRICK LOADER ASSESSMENT COMPLETE, POC REVIEWED.
--- NOTE | 2019-06-01 02:37 | NUR ---
RESP EVEN AND UNALBORED. NO DISTRESS NOTED. CL IN REACH
[2019-06-01 04:15] LABS: BASOPHILS 0.2 % (0-2); EOSINOPHILS 6.6 % (0-7); HEMATOCRIT 39.3 % (42.0-54.0); HEMOGLOBIN 13.3 g/dL (13.5-17.5); IMMATURE GRANULOCYTES 0.2 % (0-5); LYMPHOCYTES 44.8 % (15-50); MCH 32.8 pg (26.0-34.0); MCHC 33.8 g/dL (31.0-37.0); MEAN PLATELET VOLUME 10.4 fL (7.4-10.4); NEUTROPHILS 32.2 % (40-80); PLATELET COUNT 128 10x3/uL (130-400); RBC 4.05 10x6/uL (4.20-6.10); RDW 13.8 % (11.5-14.5)
[2019-06-01 04:24] LABS: CALC OSMOLALITY 285 mosm/kg (275-300); CALCIUM 8.3 mg/dL (8.5-10.1); CARBON DIOXIDE 25.5 mmol/L (21.0-32.0); CHLORIDE - SERUM 111 mmol/L (98-107); CREATININE - SERUM 0.8 mg/dL (0.6-1.3); GLUCOSE 89 mg/dL (74-106); POTASSIUM - SERUM 3.7 mmol/L (3.5-5.1); SODIUM 145 mmol/L (136-145); UREA NITROGEN 8 mg/dL (7-18); eGFR NON AFRICAN AMERICAN > 90 mL/min (90-120)
--- NOTE | 2019-06-01 04:34 | NUR ---
POSITIONS SELF FOR COMFORT. RESP EVEN AND UNLABORED. NO DISTRESS NOTED.CL IN REACH
--- NOTE | 2019-06-01 06:11 | NUR ---
EYES CLOSED.RESP EVEN AND UNLABORED. NO DISTRESS NOTED, CL IN REACH.SR UP X 2
--- NOTE | 2019-06-01 07:05 | NUR ---
REPORT RECEIVED. PT RESTING QUIETLY WITH VSS. TRASH CANS REMOVED FROM ROOM, ALONE WITH ROOM PHONE, CELL PHONE, SCD MACHINE, SOCKS, ETC, CURTAINS OPEN TO OBSERVE PT. TOOL ROOM GEAR MACHINE OPERATOR REPORTED THAT THE PSYCH NURSE THAT ASSESSED HIM STATED HE WAS A LOW RISK AND DID NOT NEED A SITTER. WILL CONTINUE TO MONITOR.
--- NOTE | 2019-06-01 09:15 | NUR ---
PT RESTING QUIETLY WITH NO S/S DISTRESS. VSS. WILL CONTINUE TO MONITOR.
--- NOTE | 2019-06-01 11:50 | NUR ---
DR TORREZ IN WITH PT AT THIS TIME.
--- NOTE | 2019-06-01 13:00 | NUR ---
PT RESTING QUIETLY WITH NO DISTRESS NOTED. CURTAINS OPEN. MONITORING PT. VSS.
--- NOTE | 2019-06-01 14:08 | MORECARE ---
CASE MANAGEMENT DISCHARGE SUMMARY PATIENT: TONJA TESFAYE UNIT: [id number] ADM DATE: 05/31/19 AGE: 53 : 69 SEX: M ROOM/BED: D.2306 AUTHOR: ROXY CONWAY PHYSICIAN: REFERRING PHYSICIAN: CONNIE TROREZ MD DATE OF SERVICE: 06/01/19 Discharge Plan Patient Name: TONJA [facility]ESFAYE [facility] [facility] 1965 Planned Disposition: Psych facility Anticipated Discharge Date: Discharge Date: Expected LOS: Initial Reviewer: [email or web address] Initial Review Date: 05/31/2019 Generated: 06/01/19 3:07 pm Comments DCP- Discharge Planning Updated by [email or web address]: Elaine Grimaldo on 06/01/19 1:[address] Patient Name: TONJA TESFAYE Admission Status: ER Accout number: [id number] Admission Date: 05-31-2019 : 1965 Admission Diagnosis: Attending: CONNIE TORREZ Current LOS: 1 Anticipated DC Date: Planned Disposition: Psych facility Primary Insurance: MEDICAID [place] Discharge Planning Comments: Patient is awaiting psychiatric evaluation. Patient is willing to go to [facility] for depression and SI. CM will continue to follow and assist as needed with discharge planning needs. Research And Development Director: Elaine Grimaldo Patient Name: TONJA TESFAYE Page 05482 at 1408 All edits/amendments must be made on the electronic document DICTATION DATE: 06/01/191406 WATER MAIN INSPECTOR: JOHANN 06/01/19 1407 RPT#: [id number] DC DATE: STATUS: ADM IN [facility] [address] [place] [address] END OF REPORT
--- NOTE | 2019-06-01 15:30 | NUR ---
PT HUNGRY. EATING GARRY CRACKERS. VSS. NO OTHER NEEDS. WILL CONTINUE TO MONITOR.
--- NOTE | 2019-06-01 17:31 | NUR ---
BANANA BAG STARTED. EXPLAINED TO PT WHAT IT IS. PT VERBALIZED UNDERSTANDING. NO NEEDS AT THIS TIME. ATE 90% OF HIS DINNER.
--- NOTE | 2019-06-01 19:00 | NUR ---
SHIFT ASSESSMENT COMPLETE. VSS, NO SIGNS OF ACUTE DISTRESS NOTED. PT DENIES ANY NEEDS AT THIS TIME. WILL CONTINUE TO MONITOR.
--- NOTE | 2019-06-01 21:00 | NUR ---
C/O ABD PAIN, 05/19. DR LORE ROSALES.
--- NOTE | 2019-06-01 21:40 | NUR ---
SPOKE WITH DR TORREZ, NEW ORDERS RECEIVED.
--- NOTE | 2019-06-01 23:00 | NUR ---
REASSESSMENT COMPLETE. PT SLEEPING. WILL MONITOR.
[2019-06-02] VITALS (21 sets, daily range): BP systolic 108–153; BP diastolic 73–98
--- NOTE | 2019-06-02 01:00 | NUR ---
PT SLEEPING. VSS, NO SIGNS OF ACUTE DISTRESS NOTED. WILL MONITOR.
--- NOTE | 2019-06-02 03:00 | NUR ---
REASSESSMENT COMPLETE. VSS, NO SIGNS OF ACUTE DISTRESS NOTED. PT SLEEPING, DENIES ANY NEEDS AT THIS TIME.
--- NOTE | 2019-06-02 05:00 | NUR ---
PT SLEEPING. VSS, WILL MONITOR.
[2019-06-02 07:13] LABS: HEPATITIS C ANTIBODY >11.0 S/CO RAT (0.0-0.9)
--- NOTE | 2019-06-02 08:02 | NUR ---
RESTING IN BED WITH EYES CLOSED AT THIS TIME. RESPIRATIONS STEADY AND UNLABORED. AWAKENS EASILY WHEN SPOKEN TO. NOTED WHEN WOKE PT UP, HE BEGAN TO COMPLAIN OF RIGHT UPPER QUADRANT PAIN TO ABDOMEN WITH SOME GUARDING AND FACIAL GRIMACING. PT STATES HE HAS BEEN EXPERIENCING THIS ABDOMINAL DISCOMFORT FOR ABOUT TWO DAYS NOW. VSS. WILL NOTIFY PHYSICIAN.
[2019-06-02 08:15] LABS: BASOPHILS 0.2 % (0-2); EOSINOPHILS 7.2 % (0-7); HEMATOCRIT 40.8 % (42.0-54.0); IMMATURE GRANULOCYTES 0.2 % (0-5); LYMPHOCYTES 32.4 % (15-50); MCH 32.9 pg (26.0-34.0); MCHC 34.3 g/dL (31.0-37.0); MONOCYTES 14.9 % (2-11); NEUTROPHILS 45.1 % (40-80); PLATELET COUNT 125 10x3/uL (130-400); RBC 4.25 10x6/uL (4.20-6.10); RDW 13.7 % (11.5-14.5); WBC 4.6 10x3/uL (4.8-10.8)
[2019-06-02 08:36] LABS: ALBUMIN 2.8 g/dL (3.4-5.0); ALKALINE PHOSPHATASE 93 U/L (46-116); ALT (SGPT) 37 U/L (10-68); BILIRUBIN - TOTAL 0.39 mg/dL (0.2-1.3); CALC OSMOLALITY 278 mosm/kg (275-300); CALCIUM 8.2 mg/dL (8.5-10.1); CARBON DIOXIDE 24.4 mmol/L (21.0-32.0); CHLORIDE - SERUM 109 mmol/L (98-107); CREATININE - SERUM 0.8 mg/dL (0.6-1.3); GLUCOSE 100 mg/dL (74-106); POTASSIUM - SERUM 3.5 mmol/L (3.5-5.1); PROTEIN - SERUM 6.5 g/dL (6.4-8.2); SODIUM 141 mmol/L (136-145); UREA NITROGEN 6 mg/dL (7-18); eGFR NON AFRICAN AMERICAN > 90 mL/min (90-120)
--- NOTE | 2019-06-02 08:55 | NUR ---
SPOKE WITH DR TORREZ REGARDING RUQ PAIN TO ABDOMEN WITH FACIAL GRIMACING AND GUARDING. PHYSICIAN ORDERED US ABDOMEN, AMYLASE, LIPASE, CBC, AND CMP. ORDERS PLACED. VSS. WILL CONTINUE PLAN OF CARE.
[2019-06-02 09:16] LABS: AMYLASE - SERUM 64 U/L (25-115); LIPASE 102 U/L (73-393)
--- NOTE | 2019-06-02 10:25 | NUR ---
RESTING IN BED AT THIS TIME. RESPIRATIONS STEADY AND UNLABORED RATE. AWAKENS EASILY WHEN SPOKEN TO. DENIES ANY CURRENT NEEDS.NO ACUTE DISTRESS NOTED. VSS. WILL CONTINUE PLAN OF CARE.
--- NOTE | 2019-06-02 11:15 | NUR ---
BED BATH OFFERED TO PT, PT REFUSED STATING "NOT NOW." WILL OFFER BED BATH AGAIN LATER. NO ACUTE DISTRESS NOTED. VSS. WILL CONTINUE PLAN OF CARE.
--- NOTE | 2019-06-02 12:39 | CN ---
PATIENT NAME:TONJA TESFAYE MEDICAL RECORD: [id number] : 69 LOCATION:ALIRIOD.2306 ADMIT DATE: 05/31/19 ACCOUNT: [id number] CONSULTING PHYSICIAN: DARCI BARAJAS MD REFERRING PHYSICIAN: CONNIE TORREZ MD DATE OF CONSULTATION: 06/01/2019 IDENTIFYING DATA: The patient is 53 years old and he is admitted to the hospital secondary to an overdose. CHIEF COMPLAINT: Depression. HISTORY OF PRESENT ILLNESS: The patient has a history of depression. He is reporting numerous neurovegetative depressive symptoms. He was drinking heavily and took an overdose of Klonopin with the intention of killing himself. He reports ongoing depressive symptoms. No psychotic symptoms and no thoughts of harming others. ASSESSMENT: Major depression. PLAN: The patient is willing to go to inpatient treatment. He has been at [facility] before secondary to his depressive symptoms and for some reason he had been lost to follow up with mental health. It is appropriate that he return for additional mental health treatment and in my opinion, he should be transferred to inpatient mental health care as soon as it is practical to do so. TRANSINT:[id number] Voice Confirmation ID: [id number] DOCUMENT ID: [id number] DARCI BARAJAS MD at 1239 CC: [id number] DICTATION DATE: 06/01/19 183 SHIP PILOT DISPATCHER: 06/01/19 1850 ADM IN [place] [id number] [place] [address]
--- NOTE | 2019-06-02 13:59 | NUR ---
UP IN BED AWAKE AT THIS TIME. NO ACUTE DISTRESS NOTED. VSS. INDEPENDENT IN ROOM. WILL CONTINUE PLAN OF CARE.
--- NOTE | 2019-06-02 16:00 | NUR ---
CHG BATH PERFORMED BY PT AT THIS TIME. TOTAL LINEN CHANGE PROVIDED. NO ACUTE DISTRESS NOTED. WILL CONTINUE PLAN OF CARE.
--- NOTE | 2019-06-02 17:53 | NUR ---
PER DR TORREZ, IN REGARDS TO PT COMPLAINT OF ABDOMINAL RUQ PAIN, ALL LABS AND IMAGING ARE NORMAL. PT IS MEDICALLY STABLE FOR TRANSFER TO INPATIENT PSYCH PLACEMENT WHENEVER HE IS ACCEPTED. WILL NOTIFY THE TRANSFER SYSTEM. NO ACUTE DISTRESS NOTED. VSS. PT LYING IN BED RESTING WITH EYES CLOSED, RESPIRATIONS STEADY AND UNLABORED. AWAKENS EASILY WHEN SPOKEN TO. WILL CONTINUE PLAN OF CARE.
--- NOTE | 2019-06-02 19:00 | NUR ---
Patient sleeping in bed with eyes closed, assessment completed per flowsheet. Patient AO x4, calm and cooperative. Denies intent to harm self/others at this time, requesting transfer to [facility]. S1/S2 noted NSR on telemetry, rythmic and regular. Breathing is even/unlabored on room air with O2 sat 97%, lung sounds clear throughout. Abdomen is soft/round with bowel sounds active x4, non-tender. Patient ambulates without assist, gait is upright/steady. C/O LUQ chronic pain, repositioned for comfort. No further needs at this time, see flowsheet for details. All VSS and will continue to monitor.
--- NOTE | 2019-06-02 20:00 | NUR ---
[facility] called to notify of bed availability, Transfer Center aware. Patient preparing to transfer at request, all VSS and will continue to monitor.
--- NOTE | 2019-06-02 20:45 | NUR ---
[facility] notified of transport request, will transfer when available.
--- NOTE | 2019-06-02 21:10 | NUR ---
Patient laying in bed awaiting transport, provided snack at request. Denies pain or other needs at this time, all VSS and will continue to monitor.
--- NOTE | 2019-06-03 00:25 | NUR ---
[facility] arrived on unit for transfer from 2[facility] to [facility], all belonging verified by patient and sent with [facility]. Patient abulated self to [facility] without assist.
--- NOTE | 2019-06-04 16:45 | MORECARE ---
CASE MANAGEMENT DISCHARGE SUMMARY PATIENT: TONJA TESFAYE UNIT: [id number] ADM DATE: 05/31/19 AGE: 53 : 69 SEX: M ROOM/BED: D.2306 AUTHOR: ROXY CONWAY PHYSICIAN: REFERRING PHYSICIAN: CONNIE TORREZ MD DATE OF SERVICE: 06/04/19 Discharge Plan Patient Name: TONJA TESFAYE [facility] [facility] 1965 Planned Disposition: Psych facility Anticipated Discharge Date: Discharge Date: 06/03/2019 Expected LOS: Initial Reviewer: [email or web address] Initial Review Date: 05/31/2019 Generated: 06/04/19 5:44 pm DCP- Discharge Planning Updated by [email or web address]: Elaine Grimaldo on 06/01/19 1:[address] Patient Name: TONJA TESFAYE Admission Status: ER Accout number: [id number] Admission Date: 05-31-2019 : 1965 Admission Diagnosis: Attending: CONNIE TORREZ Current LOS: 1 Anticipated DC Date: Planned Disposition: Psych facility Primary Insurance: MEDICAID [place] Discharge Planning Comments: Patient is awaiting psychiatric evaluation. Patient is willing to go to [facility] for depression and SI. CM will continue to follow and assist as needed with discharge planning needs. Material Distributor: Elaine Grimaldo Last DP export: 06/01/19 1:08 p Patient Name: TONJA TESFAYE Page 20208 at 1645 All edits/amendments must be made on the electronic document DICTATION DATE: 06/04/194 ROVING HAULER: JOHANN 06/04/19 1644 RPT#: [id number] DC DATE:06/03/19 STATUS: DIS IN [place] [id number] [place] [address] END OF REPORT
== END 2019-06-03 00:48 | disposition short-term general hospital (02) | DRG 918 ==
LOC: D.ER 19:29 → D.ICU 21:45
PROVIDERS: Family Medicine; ADMIT Family Medicine; ATTEND Family Medicine
DX: T42.4X2A Poisoning by benzodiazepines, intentional self-harm, initial encounter (principal); F33.3 Major depressive disorder, recurrent, severe with psychotic symptoms; R45.851 Suicidal ideations; F17.203 Nicotine dependence unspecified, with withdrawal; F10.129 Alcohol abuse with intoxication, unspecified; Y90.6 Blood alcohol level of 120-199 mg/100 ml; K29.20 Alcoholic gastritis without bleeding; B19.20 Unspecified viral hepatitis C without hepatic coma; K74.60 Unspecified cirrhosis of liver

== ENCOUNTER 2019-06-15 23:48 | Inpatient (IN) | payer MEDICAID ==
[~2019-06-15] VITALS: Ht 167.6 cm; Wt 58.1 kg
[~2019-06-15 23:48] MED LIST changes: +LIBRIUM25 MG PO; +OMEPRAZOLE40 MG PO
[2019-06-16] VITALS (13 sets, daily range): BP systolic 103–132; BP diastolic 63–82; Ht 167.6 cm; Wt 58.1 kg
--- NOTE | 2019-06-16 | NUR ---
PT STATES HE DRANK A WHOLE PINT OF WHISKEY STARTING AT 1600 YESTERDAY.
--- NOTE | 2019-06-16 00:10 | NUR ---
SPOKE WITH VAN AT [facility],STATED CONTINUE WITH ORDERED TREATMENT AND THEY WILL FOLLOW UP.
[2019-06-16] MEDS ORDERED: TRAZODONE HCL150 MG PO (00:13)
[2019-06-16] MEDS ORDERED: LITHIUM CARBON150 MG PO ×2 (00:14→00:15)
[2019-06-16] MEDS ORDERED: ZOLOFT100 MG PO (00:14)
--- NOTE | 2019-06-16 00:31 | NUR ---
URINE SENT TO LAB.
[2019-06-16 00:35] LABS: BASOPHILS 0.4 % (0-2); HEMATOCRIT 41.1 % (42.0-54.0); HEMOGLOBIN 14.4 g/dL (13.5-17.5); IMMATURE GRANULOCYTES 0.3 % (0-5); LYMPHOCYTES 28.1 % (15-50); MCV 94.3 fL (80.0-100.0); MEAN PLATELET VOLUME 10.2 fL (7.4-10.4); MONOCYTES 9.2 % (2-11); RBC 4.36 10x6/uL (4.20-6.10); RDW 13.6 % (11.5-14.5); WBC 10.3 10x3/uL (4.8-10.8)
[2019-06-16 00:40] LABS: PLATELET COUNT 264 10x3/uL (130-400)
--- NOTE | 2019-06-16 00:40 | NUR ---
PT HAS SMALL ABRASION TO THE CENTER FORHEAD AT THE HAIRLINE. PT STATES HE THINKS HE FELL BUT ISNT SURE. YESSENIA FERREIRA NOTIFIED.
[2019-06-16 00:42] LABS: APPEARANCE CLEAR (CLEAR); BILIRUBIN NEGATIVE (NEGATIVE); COLOR YELLOW (YELLOW); GLUCOSE NEGATIVE (NEGATIVE); KETONE NEGATIVE (NEGATIVE); NITRITE NEGATIVE (NEGATIVE); PROTEIN NEGATIVE (NEGATIVE); SPECIFIC GRAVITY 1.005 (1.005-1.020); UROBILINOGEN NORMAL (NORMAL)
[2019-06-16 00:45] LABS: UDS - AMPHET NEGATIVE QUAL (NEGATIVE); UDS - BARB NEGATIVE QUAL (NEGATIVE); UDS - BENZO POSITIVE QUAL (NEGATIVE); UDS - COCAINE NEGATIVE QUAL (NEGATIVE); UDS - OPIATE NEGATIVE QUAL (NEGATIVE); UDS - PCP NEGATIVE QUAL (NEGATIVE); UDS - THC NEGATIVE QUAL (NEGATIVE)
--- NOTE | 2019-06-16 00:45 | NUR ---
PT MEDICATIONS COUNTED AND PLACED IN PYXIS.
[2019-06-16 00:49] LABS: LITHIUM 0.54 mmol/L (0.60-1.20); SALICYLATES 3.5 mg/dL (2.8-20.0)
--- NOTE | 2019-06-16 00:55 | NUR ---
UNABLE TO ASSESS PATIENT DUE TO BEING UNDER THE INFLUENCE. WOULD NOT WAKE AND TALK WITH NURSE. ED REPORTED PATIENT WOULD BE GOING TO ICU DUE TO OD OF PILLS. DOCTOR AWARE PATIENT WILL BE REASSESSED.
--- NOTE | 2019-06-16 01:03 | NUR ---
MENTAL HEALTH NURSE HERE TO DO ASSESSMENT. UNABLE TO ASSESS DUE TO DROWSINESS AT THIS TIME.
[2019-06-16 01:07] LABS: ALBUMIN 3.9 g/dL (3.4-5.0); ALKALINE PHOSPHATASE 88 U/L (46-116); ALT (SGPT) 27 U/L (10-68); BILIRUBIN - TOTAL 0.28 mg/dL (0.2-1.3); CALC OSMOLALITY 289 mosm/kg (275-300); CALCIUM 8.4 mg/dL (8.5-10.1); CHLORIDE - SERUM 109 mmol/L (98-107); CREATINE KINASE 116 UL (21-232); CREATININE - SERUM 0.9 mg/dL (0.6-1.3); GLUCOSE 104 mg/dL (74-106); LIPASE 228 U/L (73-393); MAGNESIUM - SERUM 2.2 mg/dL (1.8-2.4); POTASSIUM - SERUM 3.7 mmol/L (3.5-5.1); PRO BNP 37 pg/mL (0-125); PROTEIN - SERUM 7.8 g/dL (6.4-8.2); SODIUM 146 mmol/L (136-145); UREA NITROGEN 9 mg/dL (7-18); eGFR NON AFRICAN AMERICAN > 90 mL/min (90-120)
[2019-06-16 01:11] LABS: CARBON DIOXIDE 22.7 mmol/L (21.0-32.0); TROPONIN-I < 0.017 ng/mL (0.000-0.060)
--- NOTE | 2019-06-16 02:07 | NUR ---
BACK FROM CT. PT STILL DROWSY. IV FLUIDS CONTINUE.
--- NOTE | 2019-06-16 03:50 | NUR ---
PT IN BED RESTING, AROUSES TO VERBAL STIMULI.
--- NOTE | 2019-06-16 05:20 | NUR ---
MANAGER UI ADVISED WE WILL NOT GET A BED UNTIL SHIFT CHANGE DUE TO A STAFFING ISSUE.
--- NOTE | 2019-06-16 06:17 | NUR ---
ATTEMPTED TO REASSESS PATIENT. HOWEVER ALCOHOL LEVEL AT 0315 WAS 132[address] STILL SLEEPING. DR FERREIRA RELATED WOULD ORDER ANOTHER BLOOD ALCOHOL.
--- NOTE | 2019-06-16 06:53 | NUR ---
PT IN BED RESTING. STILL DROWSY. AROUSES TO VERBAL STIMULI
--- NOTE | 2019-06-16 07:13 | NUR ---
REPORT GIVEN TO MAURICE NEGRON USING SBAR FORMAT.
--- NOTE | 2019-06-16 07:32 | NUR ---
PT RESTING IN BED WITH EYES CLOSED. AROUSABLE TO VERBAL STIMULI. WILL CON'T TO MONITOR FOR CHANGES.
--- NOTE | 2019-06-16 07:58 | NUR ---
DELAY IN TRANSFER D/T ICU CHARGE NURSE SAYING SHE IS NOT ACCEPTING THIS PATIENT UNTIL BEHAVIORAL HEALTH NURSE COMES TO ASSESS PATIENT AND DETERMINES IF PATIENT NEEDS A SITTER OR NOT.
--- NOTE | 2019-06-16 08:38 | NUR ---
CALLED [facility]PORT ERECTOR FOR BEHAVIORAL HEALTH NURSE TO COME ASSESS PATIENT.
--- NOTE | 2019-06-16 08:45 | NUR ---
BEHAVIORAL HEALTH NURSE AT BEDSIDE ASSESSING PATIENT.
--- NOTE | 2019-06-16 09:00 | NUR ---
DR. BARAJAS NOTIFIED AND SITTER AT BEDSIDE ORDERED. SITTER AT BEDSIDE. NOTIFIED CHARGE NURSE AND ATTENDING IN REGARDS TO ASSESSMENT FINDINGS. RESOURCES GIVEN TO PT AND SAFETY PLAN INITIATED.
--- NOTE | 2019-06-16 09:05 | NUR ---
PATIENT TRANSFERRED TO ICU 2304 AT THIS TIME
--- NOTE | 2019-06-16 09:15 | NUR ---
PT ARRIVED FROM ER, ALERT AND ORIENTEDX4. STATES HE TOOK TOO MANY PILLS AND DRANK TOO MUCH ALCHOHOL AT A [facility] LAST NIGHT. STATES HE WAS ATTEMPTING SUICIDE.
--- NOTE | 2019-06-16 09:39 | NUR ---
SITTER IN ROOM, CL IN REACH, SRX2. APPROPRIATE SUICIDE MEASURES TAKEN. PT IS FRIENDLY, ALERT/ORIENTED.
--- NOTE | 2019-06-16 11:25 | NUR ---
PT AWAKE AND ORIENTED, NO DISTRESS AT THIS TIME. STATES HE'S NOT CURRENTLY HAVING THOUGHTS OF SUICIDE OR SELF HARM. SITTER AT BEDSIDE. CL IN JUDY, SRX2.
--- NOTE | 2019-06-16 13:01 | NUR ---
PT AWAKE AND ORIENTED. SPOKE WITH DR. GOODWIN, STATED THAT WHEN PT IS MEDICALLY STABLE HE WILL BE RELEASED BACK TO [facility] (PT IS WILLING TO GO). DR. MACK STATES PT WILL HAVE TO STAY 3 DAYS IN ORDER TO DETOX OF ETOH.
--- NOTE | 2019-06-16 14:06 | NUR ---
PT AWKAE AND ORIENTED, WARNS US THAT HE CAN BEGAN TO TREMOR HE STARTS TO DETOX. NO TREMORS NOTED/REPORTED AT THIS TIME. CL IN REACH, SRX2. SITTER AT BEDSIDE
--- NOTE | 2019-06-16 16:14 | NUR ---
PT AWAKE AND ORIENTED. NO COMPLAINTS/CONCERNS REPORTED AT THIS TIME. CL IN REACH, SRX2, SITTER AT BEDSIDE.
--- NOTE | 2019-06-16 17:41 | NUR ---
PT RESTING PEACEFULLY. SITTER AT BEDSIDE. BREATHS EVEN/REUGLAR AND UNLABORED. DID NOT FURTHER DISTURB AT THIS TIME. CL NI REACH, SRX2.
--- NOTE | 2019-06-16 18:09 | NUR ---
RESTING IN BED AT THIS TIME. NO ACUTE DISTRESS NOTED. RESPIRATIONS AT STEADY AND REGULAR RATE. AWAKENS EASILY WHEN SPOKEN TO. VSS. CALL LIGHT IN REACH. SITTER AT BEDSDIE. WILL CONTINUE PLAN OF CARE.
--- NOTE | 2019-06-16 19:30 | NUR ---
RECEIVED CARE OF PT, ASSESSMENT PER FLOWSHEET. PT AROUSES EASILY TO VOICE, ORIENTED X 4, DENIES ANY SUICIDAL IDEATIONS AT THIS TIME, HR SR ON CM, PPP, SITTER AT BEDSIDE.
--- NOTE | 2019-06-16 21:55 | NUR ---
PT RESTING IN BED WITH EYES CLOSED, SITTER AT BEDSIDE, CONT POC.
[2019-06-17] VITALS (17 sets, daily range): BP systolic 117–159; BP diastolic 65–88
--- NOTE | 2019-06-17 00:20 | NUR ---
REASSESSMENT PER FLOWSHEET, NO ACUTE CHANGES NOTED AT THIS TIME, WILL MONITOR.
--- NOTE | 2019-06-17 01:10 | NUR ---
PT INCONTINENT OF LIQUID BROWN STOOL, PT CLEANED UP AND COMPLETE LINEN CHANGE DONE. PT ASSISTED, DENIES ANY NEEDS AT THIS TIME, SITTER REMAINS AT BEDSIDE.
[2019-06-17 04:26] LABS: BASOPHILS 0.4 % (0-2); EOSINOPHILS 4.8 % (0-7); HEMATOCRIT 37.6 % (42.0-54.0); HEMOGLOBIN 12.7 g/dL (13.5-17.5); IMMATURE GRANULOCYTES 0.2 % (0-5); LYMPHOCYTES 35.7 % (15-50); MCH 32.6 pg (26.0-34.0); MCHC 33.8 g/dL (31.0-37.0); MEAN PLATELET VOLUME 10.5 fL (7.4-10.4); MONOCYTES 11.4 % (2-11); NEUTROPHILS 47.5 % (40-80); RDW 14.1 % (11.5-14.5); WBC 9.7 10x3/uL (4.8-10.8)
[2019-06-17 04:40] LABS: MCV 96.4 fL (80.0-100.0); PLATELET COUNT 195 10x3/uL (130-400)
[2019-06-17 05:05] LABS: ALKALINE PHOSPHATASE 76 U/L (46-116); ALT (SGPT) 21 U/L (10-68); BILIRUBIN - TOTAL 0.52 mg/dL (0.2-1.3); CALC OSMOLALITY 282 mosm/kg (275-300); CALCIUM 8.5 mg/dL (8.5-10.1); CARBON DIOXIDE 23.7 mmol/L (21.0-32.0); CHLORIDE - SERUM 111 mmol/L (98-107); CREATININE - SERUM 0.9 mg/dL (0.6-1.3); GLUCOSE 87 mg/dL (74-106); POTASSIUM - SERUM 4.2 mmol/L (3.5-5.1); PROTEIN - SERUM 6.2 g/dL (6.4-8.2); SODIUM 143 mmol/L (136-145); UREA NITROGEN 11 mg/dL (7-18); eGFR NON AFRICAN AMERICAN > 90 mL/min (90-120)
[2019-06-17 05:08] LABS: ALBUMIN 2.7 g/dL (3.4-5.0)
--- NOTE | 2019-06-17 07:00 | NUR ---
REC'D PT. AA0X4. DENIES SI. SITTER AT BEDSIDE. NO S/S OF ACUTE DISTRESS. CL IN PLACE.
--- NOTE | 2019-06-17 07:00 | NUR ---
DR MACK NOTIFIED THAT PTS HEART RATE IS NOTED TO DROP LOW 35 WHILE RESTING, NO DISTRESS NOTED AND BLOOD PRESSURE WDL. PER PT, THIS IS NORMAL FOR HIM IN THE PAST. NO NEW ORDERS RECIEVED BY PHYSICIAN REGARDING THIS.
--- NOTE | 2019-06-17 09:49 | NUR ---
PT RESTING IN BED. DENIES ANY NEEDS. DENIES SI. NO S/S OF ACUTE DISTRESS. CL IN PLACE. SITTER AT BEDSIDE.
--- NOTE | 2019-06-17 11:00 | NUR ---
PT GAVE SELF SPONGE BATH. COMPLETE BED CHANGE DONE. 1 LARGE BM NOTED. SITTER AT BEDSIDE. NO S/S OF ACUTE DISTRESS. CL IN PLACE.
--- NOTE | 2019-06-17 11:29 | CN ---
PATIENT NAME:TONJA TESFAYE MEDICAL RECORD: [id number] : [birth year] LOCATION:RICARDO.2304 ADMIT DATE: 06/16/19 ACCOUNT: [id number] CONSULTING PHYSICIAN: DARCI BARAJAS MD REFERRING PHYSICIAN: BALTAZAR MCDOWELL MD DATE OF CONSULTATION: 06/16/2019 IDENTIFYING DATA: The patient is 53 years old and he is admitted to the hospital on a voluntary basis. CHIEF COMPLAINT: Overdose. HISTORY OF PRESENT ILLNESS: The patient was released from [facility] a few days ago. He was sent home with lithium, trazodone, and Zoloft. He drank excessively yesterday and became depressed, despondent, and took an overdose of trazodone. He freely admits to doing this and says he did it with the intention to kill himself. He endorses numerous neurovegetative depressive symptoms. PAST MEDICAL HISTORY: Significant for a long history of chaotic dysfunctional interactions and a previous suicide attempt recently that resulted in him being hospitalized in [facility]. ASSESSMENT: 1. Polysubstance abuse. 2. Bipolar disorder, depressed phase by history. PLAN: At this time, the patient should be continued 1:1 with a sitter. Once he is medically stabilized, he should be transferred to acute inpatient psychiatric care. He prefers to go back to [facility] and he is willing to go on a voluntary basis. TRANSINT:[id number] Voice Confirmation ID: [id number] DOCUMENT ID: [id number] DARCI BARAJAS MD at 1129 CC: [id number] DICTATION DATE: 06/16/[address] FREIGHT CONDUCTOR: 06/16/19 1322 ADM IN [place] [id number] [place] [id number]
--- NOTE | 2019-06-17 14:08 | NUR ---
PT RESTING IN BED. NO S.S OF ACUTE DISTRESS. CL IN PLACE. SITTER AT BEDSIDE.
--- NOTE | 2019-06-17 19:00 | NUR ---
PT RESTING IN BED. DENIES SI. SITTER AT BEDSIDE. CL IN PLACE.
--- NOTE | 2019-06-17 19:30 | NUR ---
REC'D TO CARE, BENCH HAND MACHINE PER FLOWSHEET. SITTER AT BS. PT COOPERATIVE, DENIES SUICIDAL IDEATIONS AT THIS TIME.
--- NOTE | 2019-06-17 20:24 | NUR ---
GRANDDAUGHTER AT BS VISITING. PLAN FOR BATH AFTER VISITATION.
--- NOTE | 2019-06-17 21:45 | NUR ---
PT WATCHING TV, DENIES NEEDS. SITTER AT BS.
--- NOTE | 2019-06-17 23:30 | NUR ---
REASSESSMENT PER FLOWSHEET, NO ACUTE CHANGES. PT RESTING QUIETLY, VSS. SITTER REMAINS AT BS.
[2019-06-18] VITALS (12 sets, daily range): BP systolic 111–156; BP diastolic 66–88
--- NOTE | 2019-06-18 01:09 | NUR ---
RESTING WITH EYES CLOSED.
--- NOTE | 2019-06-18 03:31 | NUR ---
REASSESSMENT PER FLOWSHEET, NO ACUTE CHANGES. PT WATCHING TV. VSS. SITTER AT BS.
[2019-06-18 04:39] LABS: BASOPHILS 0.4 % (0-2); EOSINOPHILS 4.9 % (0-7); HEMATOCRIT 37.8 % (42.0-54.0); HEMOGLOBIN 13.1 g/dL (13.5-17.5); IMMATURE GRANULOCYTES 0.2 % (0-5); LYMPHOCYTES 27.1 % (15-50); MCH 32.8 pg (26.0-34.0); MCHC 34.7 g/dL (31.0-37.0); MCV 94.7 fL (80.0-100.0); MEAN PLATELET VOLUME 10.9 fL (7.4-10.4); MONOCYTES 11.1 % (2-11); NEUTROPHILS 56.3 % (40-80); RBC 3.99 10x6/uL (4.20-6.10); RDW 13.4 % (11.5-14.5); WBC 9.9 10x3/uL (4.8-10.8)
[2019-06-18 04:53] LABS: PLATELET COUNT 248 10x3/uL (130-400)
[2019-06-18 05:06] LABS: CALC OSMOLALITY 278 mosm/kg (275-300); CARBON DIOXIDE 27.5 mmol/L (21.0-32.0); CHLORIDE - SERUM 107 mmol/L (98-107); CREATININE - SERUM 0.8 mg/dL (0.6-1.3); GLUCOSE 86 mg/dL (74-106); SODIUM 141 mmol/L (136-145); UREA NITROGEN 10 mg/dL (7-18); eGFR NON AFRICAN AMERICAN > 90 mL/min (90-120)
[2019-06-18 05:08] LABS: POTASSIUM - SERUM 3.3 mmol/L (3.5-5.1)
--- NOTE | 2019-06-18 10:09 | NUR ---
MORNING MEDICATIONS HAVE BEEN PROVIDED. PT HAS VOIDED X2. BM X1. DENIES PAIN. DENIES ANY ADDITIONAL NEEDS. CALL LIGHT IN REACH.
--- NOTE | 2019-06-18 14:43 | NUR ---
PT WILLING TO GO TO [facility] IF WILL ACCEPT. DOES NOT WANT TO GO TO [facility] BECAUSE HE SAID IT "IS TOO FAR" HAS BEEN IN [facility] BEFORE ACCORDING TO PATIENT
--- NOTE | 2019-06-18 15:17 | NUR ---
VANDANA ANGLIN RN FROM [facility] CALLED AND SAID WILL BE ACCEPTING. DR HOPPER IS THE ACCEPTING PHYSICIAN. REPORT WAS PROVIDED AT THIS TIME. PT HAS HAD AFTERNOON DOSE OF LIBRIUM AND 40MEQ OF POTASSIUM REPLACEMENT PROVIDED. HAS HAD MULTIPLE URINE OUTPUT AND 1 BM TODAY. REGULAR DIET AND HAS GOOD APPETITE. PLEASANT PATIENT. HAS BEEN ON ROOM AIR. AFEBRILE. LATEST VITALS ALSO RELAYED.
--- NOTE | 2019-06-18 16:09 | MORECARE ---
CASE MANAGEMENT DISCHARGE SUMMARY PATIENT: TONJA TESFAYE UNIT: [id number] ADM DATE: 06/17/19 AGE: 53 : 69 SEX: M ROOM/BED: D.2304 AUTHOR: ROXY CONWAY PHYSICIAN: REFERRING PHYSICIAN: BALTAZAR MCDOWELL MD DATE OF SERVICE: 06/18/19 Discharge Plan Patient Name: TONJA TESFAYE [facility] [facility] 1965 Planned Disposition: Psych facility Anticipated Discharge Date: Discharge Date: Expected LOS: Initial Reviewer: [email or web address] Initial Review Date: 06/18/2019 Generated: 06/18/19 5:08 pm External Providers External Provider: OTHER-OTHER Next Contact Date: Service Request Date: Service Type: Resolution: Reviewer: Comments: Patient Name: TONJA TESFAYE Page 02300 at 1609 All edits/amendments must be made on the electronic document DICTATION DATE: 06/18/19 1608 ENGINEERING DESIGNER: JOHANN 06/18/19 1608 RPT#: [id number] DC DATE: STATUS: ADM IN [facility] [address] [place] [address] END OF REPORT
--- NOTE | 2019-06-18 16:32 | MORECARE ---
CASE MANAGEMENT DISCHARGE SUMMARY PATIENT: TONJA TESFAYE UNIT: [id number] ADM DATE: 06/17/19 AGE: 53 : 69 SEX: M ROOM/BED: D.2304 AUTHOR: ROXY CONWAY PHYSICIAN: REFERRING PHYSICIAN: BALTAZAR MCDOWELL MD DATE OF SERVICE: 06/18/19 Discharge Plan Patient Name: TONJA TESFAYE [facility] [facility] 1965 Planned Disposition: Psych facility Anticipated Discharge Date: Discharge Date: Expected LOS: Initial Reviewer: [email or web address] Initial Review Date: 06/18/2019 Generated: 06/18/19 5:31 pm Comments DCP- Discharge Planning Updated by [email or web address]: Elaine Grimaldo on 06/18/19 3:[address] Patient Name: TONJA TESFAYE Admission Status: ER Accout number: [id number] Admission Date: 06-17-2019 : 1965 Admission Diagnosis: Attending: BALTAZAR MCDOWELL Current LOS: 1 Anticipated DC Date: Planned Disposition: Psych facility Primary Insurance: [place] [employer] [facility] Discharge Planning Comments: Patient has agreed to inpatient psychiatric placement. Nursing has faxed records to transfer center. Awaiting placement. CM will continue to follow and assist as needed with discharge planning / needs. Billboard Installer: Elaine Grimaldo Last DP export: 06/18/19 3:09 pm Patient Name: TONJA TESFAYE Page 42842 at 1632 All edits/amendments must be made on the electronic document DICTATION DATE: 06/18/19 1631 MRI TECHNOLOGIST: JOHANN 06/18/19 1631 RPT#: [id number] DC DATE: STATUS: ADM IN [facility] [address] [place] [address] END OF REPORT
--- NOTE | 2019-06-18 18:30 | NUR ---
PT PICKED UP BY [employer]. GREEN BACKPACK AND A PATIENT BELONGING BAG WITH CLOTHING GIVEN TO EMS TO TAKE TO [facility].
--- NOTE | 2019-06-19 17:34 | MORECARE ---
CASE MANAGEMENT DISCHARGE SUMMARY PATIENT: TONJA TESFAYE UNIT: [id number] ADM DATE: 06/17/19 AGE: 53 : 69 SEX: M ROOM/BED: D.2304 AUTHOR: ROXY CONWAY PHYSICIAN: REFERRING PHYSICIAN: BALTAZAR MCDOWELL MD DATE OF SERVICE: 06/19/19 Discharge Plan Patient Name: TONJA TESFAYE [facility] [facility] 1965 Planned Disposition: Psych facility Anticipated Discharge Date: Discharge Date: 06/18/2019 Expected LOS: Initial Reviewer: [email or web address] Initial Review Date: 06/18/2019 Generated: 06/19/19 6:33 pm Comments DCP- Discharge Planning Updated by [email or web address]: Elaine Grimaldo on 06/18/19 3:[address] Patient Name: TONJA TESFAYE Admission Status: ER Accout number: [id number] Admission Date: 06-17-2019 : 1965 Admission Diagnosis: Attending: BALTAZAR MCDOWELL Current LOS: 1 Anticipated DC Date: Planned Disposition: Psych facility Primary Insurance: [place] [employer] Discharge Planning Comments: Patient has agreed to inpatient psychiatric placement. Nursing has faxed records to transfer center. Awaiting placement. CM will continue to follow and assist as needed with discharge planning / needs. Entry Level Project Engineer: Elaine Grimaldo Last DP export: 06/18/19 3:32 pm Patient Name: TONJA TESFAYE Page [id number] at 1734 All edits/amendments must be made on the electronic document DICTATION DATE: 06/19/191732 PICTURE HANGER: JOHANN 06/19/19 173 RPT#: [id number] DC DATE:06/18/19 STATUS: DIS IN [facility] [address] [facility] [place] [address] END OF REPORT
== END 2019-06-18 18:31 | disposition short-term general hospital (02) | DRG 918 ==
LOC: D.ER 23:48 → D.ICU 06-16 08:25 → OBSVTIME 06-16 08:25 → D.ICU 06-16 08:25
PROVIDERS: Family Medicine; Internal Medicine Nephrology; ADMIT Family Medicine; ATTEND Family Medicine
DX: T43.212A Poisoning by selective serotonin and norepinephrine reuptake inhibitors, intentional self-harm, initial encounter (principal); F10.239 Alcohol dependence with withdrawal, unspecified; R45.851 Suicidal ideations; F31.9 Bipolar disorder, unspecified; F19.10 Other psychoactive substance abuse, uncomplicated

== ENCOUNTER 2019-10-25 01:37 | Emergency (ER) | payer MEDICAID ==
[~2019-10-25] VITALS: Ht 167.6 cm; Wt 62.7 kg
[~2019-10-25 01:37] MED LIST changes: +LITHIUM CARBON150 MG PO; +TRAZODONE HCL150 MG PO; +ZOLOFT100 MG PO
[2019-10-25 01:42] VITALS: Ht 167.6 cm; Wt 62.7 kg
[2019-10-25] MEDS ORDERED: HYDROCODON-ACE1 EAC2 PO (02:01)
[2019-10-25] MEDS ORDERED: CYCLOBENZAPRINE10 MG PO (02:03)
[2019-10-25 02:31] VITALS: BP 131/79
== END 2019-10-25 02:31 | disposition home or self-care (01) ==
LOC: D.ER 01:37
DX: M54.9 Dorsalgia, unspecified (principal); W19.XXXA Unspecified fall, initial encounter; K21.9 Gastro-esophageal reflux disease without esophagitis; Z72.0 Tobacco use

== ENCOUNTER 2019-11-05 20:26 | Emergency (ER) | payer MEDICAID ==
[~2019-11-05] VITALS: Ht 167.6 cm; Wt 62.7 kg
[~2019-11-05 20:26] MED LIST changes: +CYCLOBENZAPRINE10 MG PO; +HYDROCODON-ACE1 EAC2 PO
[2019-11-05 20:34] VITALS: Ht 167.6 cm; Wt 62.7 kg
[2019-11-05] MEDS ORDERED: CYCLOBENZAPRINE10 MG PO (23:18)
[2019-11-05] MEDS ORDERED: TORADOL10 MG PO (23:18)
[2019-11-05 23:48] VITALS: BP 148/81
== END 2019-11-05 23:48 | disposition home or self-care (01) ==
LOC: D.ER 20:26
DX: S39.012A Strain of muscle, fascia and tendon of lower back, initial encounter (principal); S30.0XXA Contusion of lower back and pelvis, initial encounter; M51.37 Other intervertebral disc degeneration, lumbosacral region; M47.816 Spondylosis without myelopathy or radiculopathy, lumbar region; M43.17 Spondylolisthesis, lumbosacral region; W19.XXXA Unspecified fall, initial encounter; Y93.9 Activity, unspecified; Y92.9 Unspecified place or not applicable

== ENCOUNTER 2020-01-17 02:50 | Emergency (ER) | payer MEDICAID ==
[~2020-01-17] VITALS: Ht 167.6 cm; Wt 77.3 kg
[~2020-01-17 02:50] MED LIST changes: +TORADOL10 MG PO
[2020-01-17 03:07] VITALS: BP 115/80; Ht 167.6 cm; Wt 77.3 kg
[2020-01-17] MEDS ORDERED: HYDROCODON-ACE1 EA10 PO (03:12)
[2020-01-17 03:33] LABS: BASOPHILS 0.1 % (0-2); EOSINOPHILS 2.2 % (0-7); HEMATOCRIT 41.1 % (42.0-54.0); HEMOGLOBIN 13.4 g/dL (13.5-17.5); IMMATURE GRANULOCYTES 0.3 % (0-5); LYMPHOCYTES 43.8 % (15-50); MCH 32.5 pg (26.0-34.0); MCHC 32.6 g/dL (31.0-37.0); MCV 99.8 fL (80.0-100.0); MEAN PLATELET VOLUME 9.7 fL (7.4-10.4); MONOCYTES 11.9 % (2-11); NEUTROPHILS 41.7 % (40-80); PLATELET COUNT 250 10x3/uL (130-400); RBC 4.12 10x6/uL (4.20-6.10); WBC 6.9 10x3/uL (4.8-10.8)
[2020-01-17 03:51] LABS: CALC OSMOLALITY 283 mosm/kg (275-300); CALCIUM 8.9 mg/dL (8.5-10.1); CARBON DIOXIDE 23.4 mmol/L (21.0-32.0); CHLORIDE - SERUM 106 mmol/L (98-107); GLUCOSE 93 mg/dL (74-106); POTASSIUM - SERUM 3.7 mmol/L (3.5-5.1); SODIUM 143 mmol/L (136-145); UREA NITROGEN 10 mg/dL (7-18); eGFR NON AFRICAN AMERICAN 83 mL/min (90-120)
[2020-01-17 03:56] LABS: ALBUMIN 4.1 g/dL (3.4-5.0); ALKALINE PHOSPHATASE 89 U/L (30-120); ALT (SGPT) 36 U/L (10-68); MAGNESIUM - SERUM 2.2 mg/dL (1.8-2.4); PROTEIN - SERUM 8.5 g/dL (6.4-8.2)
[2020-01-17 04:15] LABS: BILIRUBIN NEGATIVE (NEGATIVE); GLUCOSE NEGATIVE (NEGATIVE); KETONE NEGATIVE (NEGATIVE); NITRITE NEGATIVE (NEGATIVE); SPECIFIC GRAVITY 1.005 (1.005-1.020); UROBILINOGEN NORMAL (NORMAL)
[2020-01-17 04:19] LABS: UDS - AMPHET NEGATIVE QUAL (NEGATIVE); UDS - BARB NEGATIVE QUAL (NEGATIVE); UDS - BENZO NEGATIVE QUAL (NEGATIVE); UDS - COCAINE NEGATIVE QUAL (NEGATIVE); UDS - OPIATE POSITIVE QUAL (NEGATIVE); UDS - PCP NEGATIVE QUAL (NEGATIVE); UDS - THC NEGATIVE QUAL (NEGATIVE)
== END 2020-01-17 07:19 | disposition home or self-care (01) ==
LOC: D.ER 02:50
PROVIDERS: Emergency Medicine
DX: R45.851 Suicidal ideations (principal); F10.10 Alcohol abuse, uncomplicated; Y90.6 Blood alcohol level of 120-199 mg/100 ml; F32.9 Major depressive disorder, single episode, unspecified

== ENCOUNTER 2020-12-17 00:29 | Emergency (ER) | payer OTHER ==
[~2020-12-17] VITALS: Ht 167.6 cm; Wt 65.9 kg
[~2020-12-17 00:29] MED LIST changes: +HYDROCODON-ACE1 EA10 PO
[2020-12-17 00:34] VITALS: Ht 167.6 cm; Wt 65.9 kg
[2020-12-17 02:14] LABS: BASOPHILS 0.3 % (0-2); EOSINOPHILS 2.1 % (0-7); HEMOGLOBIN 13.6 g/dL (13.5-17.5); IMMATURE GRANULOCYTES 0.2 % (0-5); LYMPHOCYTE ABS# 2.11 10x3/uL (1.32-3.57); LYMPHOCYTES 33.8 % (15-50); MCH 32.2 pg (26.0-34.0); MCV 94.8 fL (80.0-100.0); MEAN PLATELET VOLUME 10.8 fL (7.4-10.4); MONOCYTES 14.7 % (2-11); NEUTROPHIL ABS# 3.06 10x3/uL (1.78-5.38); NEUTROPHILS 48.9 % (40-80); PLATELET COUNT 179 10x3/uL (130-400); RBC 4.22 10x6/uL (4.20-6.10); RDW 13.1 % (11.5-14.5); WBC 6.3 10x3/uL (4.8-10.8)
[2020-12-17 02:45] LABS: ALKALINE PHOSPHATASE 99 U/L (30-120); ALT (SGPT) 43 U/L (10-68); BILIRUBIN - TOTAL 0.16 mg/dL (0.2-1.3); CALC OSMOLALITY 285 mosm/kg (275-300); CARBON DIOXIDE 26.1 mmol/L (21.0-32.0); CHLORIDE - SERUM 109 mmol/L (98-107); CREATINE KINASE 181 UL (21-232); CREATININE - SERUM 0.9 mg/dL (0.6-1.3); GLUCOSE 93 mg/dL (74-106); MAGNESIUM - SERUM 2.4 mg/dL (1.8-2.4); POTASSIUM - SERUM 3.5 mmol/L (3.5-5.1); PROTEIN - SERUM 7.5 g/dL (6.4-8.2); SODIUM 144 mmol/L (136-145); UREA NITROGEN 9 mg/dL (7-18); eGFR NON AFRICAN AMERICAN > 90 mL/min (90-120)
[2020-12-17 02:51] LABS: CALCIUM 8.6 mg/dL (8.5-10.1)
--- NOTE | 2020-12-17 03:47 | NUR ---
SUICIDE RISK ASSESSMENT COMPLETED. PT RELATES HE HAS HAD 20+ SA IN HIS LIFETIME. DR BARAJAS NOTIFIED AND SITTER ORDERED. SITTER AT BEDSIDE. NOTIFIED CHARGE NURSE AND ATTENDING OF ASSESSMENT AND FINDINGS. RESOURCES GIVEN TO PT AND SAFETY PLAN INITIATED.
[2020-12-17 03:51] LABS: SARS-CoV-2 ANTIGEN NEGATIVE- SARS-COV-2 (NEGATIVE)
[2020-12-17 05:10] LABS: BILIRUBIN NEGATIVE (NEGATIVE); KETONE NEGATIVE (NEGATIVE); NITRITE NEGATIVE (NEGATIVE); UROBILINOGEN NORMAL mg/dL (< 2)
[2020-12-17 05:17] LABS: UDS - AMPHET NEGATIVE QUAL (NEGATIVE); UDS - BARB NEGATIVE QUAL (NEGATIVE); UDS - BENZO NEGATIVE QUAL (NEGATIVE); UDS - COCAINE NEGATIVE QUAL (NEGATIVE); UDS - OPIATE NEGATIVE QUAL (NEGATIVE); UDS - PCP NEGATIVE QUAL (NEGATIVE); UDS - THC NEGATIVE QUAL (NEGATIVE)
[2020-12-17 11:02] VITALS: BP 119/72
== END 2020-12-17 11:04 | disposition other institution (70) ==
LOC: D.ER 00:29
PROVIDERS: Emergency Medicine
DX: R45.851 Suicidal ideations (principal); F10.129 Alcohol abuse with intoxication, unspecified; Y90.0 Blood alcohol level of less than 20 mg/100 ml

== ENCOUNTER 2021-01-09 17:41 | Emergency (ER) | payer OTHER ==
[~2021-01-09] VITALS: Ht 167.6 cm; Wt 65.9 kg
[2021-01-09 17:50] VITALS: Ht 167.6 cm; Wt 65.9 kg
[2021-01-09 20:34] LABS: BASOPHILS 0.3 % (0-2); EOSINOPHILS 1.5 % (0-7); HEMATOCRIT 44.1 % (42.0-54.0); HEMOGLOBIN 14.8 g/dL (13.5-17.5); IMMATURE GRANULOCYTES 0.6 % (0-5); LYMPHOCYTE ABS# 2.56 10x3/uL (1.32-3.57); MCH 33.5 pg (26.0-34.0); MCHC 33.6 g/dL (31.0-37.0); MCV 99.8 fL (80.0-100.0); MEAN PLATELET VOLUME 10.7 fL (7.4-10.4); MONOCYTES 10.1 % (2-11); NEUTROPHIL ABS# 3.33 10x3/uL (1.78-5.38); NEUTROPHILS 49.5 % (40-80); RBC 4.42 10x6/uL (4.20-6.10); RDW 15.4 % (11.5-14.5); WBC 6.7 10x3/uL (4.8-10.8)
[2021-01-09 20:38] LABS: CALC OSMOLALITY 285 mosm/kg (275-300); CALCIUM 9.1 mg/dL (8.5-10.1); CARBON DIOXIDE 23.6 mmol/L (21.0-32.0); CHLORIDE - SERUM 106 mmol/L (98-107); CREATININE - SERUM 0.8 mg/dL (0.6-1.3); GLUCOSE 88 mg/dL (74-106); POTASSIUM - SERUM 4.2 mmol/L (3.5-5.1); SODIUM 145 mmol/L (136-145); UREA NITROGEN 7 mg/dL (7-18); eGFR NON AFRICAN AMERICAN > 90 mL/min (90-120)
[2021-01-09 20:43] LABS: ALBUMIN 4.3 g/dL (3.4-5.0); ALKALINE PHOSPHATASE 122 U/L (30-120); ALT (SGPT) 70 U/L (10-68); BILIRUBIN - TOTAL 0.26 mg/dL (0.2-1.3); MAGNESIUM - SERUM 2.4 mg/dL (1.8-2.4)
[2021-01-09 20:44] LABS: PLATELET COUNT 271 10x3/uL (130-400)
[2021-01-09 20:45] LABS: LITHIUM 0.37 mmol/L (0.60-1.20); SALICYLATES 5.1 mg/dL (2.8-20.0)
[2021-01-09 20:51] LABS: BILIRUBIN NEGATIVE (NEGATIVE); KETONE NEGATIVE (NEGATIVE); NITRITE NEGATIVE (NEGATIVE); UROBILINOGEN NORMAL mg/dL (< 2)
[2021-01-10 01:00] VITALS: BP 139/82
[2021-01-10 02:46] LABS: SARS-CoV-2 ANTIGEN NEGATIVE- SARS-COV-2 (NEGATIVE)
--- NOTE | 2021-01-10 03:17 | NUR ---
DR BARAJAS NOTIFIED. SITTER ORDERED. SITTER AT BEDSIDE. NOTIFIED CHARGE NURSE AND ATTENDING IN REGARDS TO ASSESSMENT FINDINGS. RESOURCES GIVEN TO PT BAND SAFETY PLAN INITIATED.
== END 2021-01-10 04:16 ==
LOC: D.ER 17:41
PROVIDERS: Family Medicine
DX: R45.851 Suicidal ideations (principal); F10.129 Alcohol abuse with intoxication, unspecified; Y90.6 Blood alcohol level of 120-199 mg/100 ml